=== PATIENT | female | born 1975 | race Caucasian/White ===

== ENCOUNTER 2020-09-05 13:21 | Outpatient (REF) | payer OTHER, SELFPAY | END 2020-09-05 13:22 | disposition home or self-care (01) | LOC: HO.LNP 13:21 | PROVIDERS: Visit Provider Internal Medicine | DX: Z20.828 Contact with and (suspected) exposure to other viral communicable diseases (principal) | CPT/HCPCS: 87635 ==

== ENCOUNTER 2020-09-26 09:04 | Outpatient (REF) | payer OTHER, SELFPAY ==
[2020-09-26 10:25] LABS: Glucose Urine UA NEG (NEG); Leukocyte Esterase Urine NEG (NEG); Nitrite Urine NEG (NEG); Urine Blood 1+ (NEG); Urine Ketones NEG (NEG); Urine Protein NEG (NEG-TRACE)
[2020-09-26 10:26] LABS: Appearance Urine CLEAR; Color Urine YELLOW
[2020-09-26 10:33] LABS: Squamous Epithelial Cell Urine 2+ /LPF; WBC Urine 0 /HPF (0-4)
== END 2020-09-26 09:05 | disposition home or self-care (01) ==
LOC: HO.LAB 09:04
PROVIDERS: PCP Internal Medicine; Visit Provider Internal Medicine
DX: R30.0 Dysuria (principal)
CPT/HCPCS: 81001; 87086

== ENCOUNTER 2020-09-26 12:01 | Outpatient (REF) | payer OTHER, SELFPAY ==
--- NOTE | 2020-09-26 | US_ITS ---
EXAMINATION: ULTRASOUND OF THE KIDNEYS AND BLADDER. CLINICAL INFORMATION: 45-year-old female patient with right flank pain and hematuria. COMPARISON: Last KUB on 03/10/2016. TECHNIQUE: Ultrasound of the kidneys and urinary bladder. FINDINGS: Right kidney: There is no evidence of hydronephrosis or cortical thinning. A 0.8 cm nonobstructing calculus is located in the lower pole. The right kidney measures 10.7 x 4.9 x 5.9 cm. Renal cortical echogenicity is normal. The medullary pyramids show the normal hypoechoic appearance. Left knee: There is no evidence of hydronephrosis, stone formation or cortical thinning. The left kidney measures 12.0 x 4.7 x 4.1 cm. Renal cortical echogenicity is normal. The medullary pyramids show the normal hypoechoic appearance. Bladder: The urinary bladder is well distended and unremarkable. No stones are seen within the bladder lumen. Prevoid bladder volume was 412 mL. Post void bladder volume negligible. Bilateral ureteral jets were observed during this exam. Incidentally noted is a simple 2.5 cm cyst arising from the left ovary. US/US renal BI IMPRESSION: 1. Neither kidney shows evidence of hydronephrosis. 2. Nonobstructing calculus, lower pole of the right kidney. 3. Bladder normal. Bilateral ureteral jets were observed.
--- NOTE | 2020-09-26 | US_ITS ---
EXAMINATION: ULTRASOUND OF THE KIDNEYS AND BLADDER. CLINICAL INFORMATION: 45-year-old female patient with right flank pain and hematuria. COMPARISON: Last KUB on 03/10/2016. TECHNIQUE: Ultrasound of the kidneys and urinary bladder. FINDINGS: Right kidney: There is no evidence of hydronephrosis or cortical thinning. A 0.8 cm nonobstructing calculus is located in the lower pole. The right kidney measures 10.7 x 4.9 x 5.9 cm. Renal cortical echogenicity is normal. The medullary pyramids show the normal hypoechoic appearance. Left knee: There is no evidence of hydronephrosis, stone formation or cortical thinning. The left kidney measures 12.0 x 4.7 x 4.1 cm. Renal cortical echogenicity is normal. The medullary pyramids show the normal hypoechoic appearance. Bladder: The urinary bladder is well distended and unremarkable. No stones are seen within the bladder lumen. Prevoid bladder volume was 412 mL. Post void bladder volume negligible. Bilateral ureteral jets were observed during this exam. Incidentally noted is a simple 2.5 cm cyst arising from the left ovary. US/US bladder IMPRESSION: 1. Neither kidney shows evidence of hydronephrosis. 2. Nonobstructing calculus, lower pole of the right kidney. 3. Bladder normal. Bilateral ureteral jets were observed.
== END 2020-09-26 12:02 | disposition home or self-care (01) ==
LOC: HO.US 12:01
PROVIDERS: Visit Provider Internal Medicine
DX: R10.31 Right lower quadrant pain (principal); R31.9 Hematuria, unspecified
CPT/HCPCS: 76770; 76775; 76857

== ENCOUNTER 2020-09-27 10:53 | Outpatient (REF) | payer OTHER, SELFPAY ==
--- NOTE | 2020-09-27 10:59 | CT_ITS ---
EXAMINATION: CT ABDOMEN AND PELVIS WITHOUT AND WITH CONTRAST CLINICAL INFORMATION: Hematuria. Flank pain. COMPARISON: Renal ultrasound September 26, 2020 and KUB March 10, 2016 TECHNIQUE: Multidetector volumetric imaging was performed of the abdomen and pelvis before and after the IV administration of 85 mL of Omnipaque 350 intravenous contrast. Sagittal and coronal reformatted images were obtained on the technologist's workstation. This CT examination was performed using dose optimization techniques as appropriate, variously including the following: *Automated exposure control *Adjustment of mA and/or kV according to patient size (this includes techniques or standardized protocols for targeted exams where dose is matched to indication/reason for exam; i.e. extremities or head) *Use of iterative reconstruction technique DLP: 1064 mGy-cm FINDINGS: Visualized lung bases are well aerated. The liver is mildly enlarged. Gallstones are present within a relatively decompressed gallbladder. The pancreas, spleen and adrenal glands are unremarkable. Symmetrically sized kidneys which demonstrate symmetric enhancement. No renal calculi are noted bilaterally. There is no hydronephrosis of either kidney. Opacified portions of the proximal and mid bilateral ureters are normal in caliber. The distal bilateral ureters are not well opacified and therefore not accurately evaluated. There is a 3 mm calcification in the right pelvis, however, do not believe it is within the distal right ureter and instead likely represents a phlebolith. I suspect this can be visualized on KUB from March 10, 2016. The stomach is decompressed. Normal caliber loops of small and large bowel. There is mild colonic diverticulosis present. The appendix is difficult to visualize, however, does appear normal in caliber (axial image 43/70, series 8 and coronal image 31/92, series 10). There is however prominent mesenteric stranding which appears to be centered within the right lower quadrant. Interestingly, however, there is some mesenteric stranding also noted within the posterior left lower abdomen and centrally within the pelvis. The bladder is decompressed and therefore not accurately evaluated, however, no gross bladder abnormality is identified. There is a suspected 2 cm left adnexal cyst. A small amount of free pelvic fluid is noted, nonspecific. No inguinal lymphadenopathy appreciated. Mild degenerative changes in of the spine. Left L5 pars defect is noted. CT/CT abdomen pelvis wo/w con IMPRESSION: 1. Abnormal mesenteric stranding is noted within the lower abdomen and pelvis which appears most prominent within the right lower abdominal quadrant. The appendix is difficult to visualize, however, does not appear dilated. This area of stranding abuts the sigmoid colon which demonstrates mild diverticulosis and also abuts the uterus and right adnexal region in particular. Ultimately, a cause for this stranding is unknown. 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 Clinical correlation is recommended in addition to surgical consultation. An ultrasound of the pelvis may be helpful at this time. 2. Cholelithiasis. This Critical Result was discussed with Dr. Staples at 1:06 PM on September 27, 2020 and it was ascertained that the content and urgency of the report was understood at the time of direct communication.
[2020-09-27] MEDS: iohexoL 350 MG/ML 100 ML INFUS..BTL IV (11:45)
[2020-09-27 14:41] LABS: MANUAL DIFF FLAG NO
[2020-09-27 14:49] LABS: Basophils Percent Auto 0.4 % (0-2); Eosinophils Absolute Auto 0.1 X10*3/uL (0.0-0.4); Eosinophils Percent Auto 1.1 % (0-4); Hematocrit 37.5 % (37-47); Hemoglobin 12.4 g/dl (12.0-16.0); Imm Gran Abs Auto 0.04 X10*3/uL (0.00-0.03); Imm Gran Pct Auto 0.4 % (0.0-0.4); Lymphocytes Percent Auto 19.4 % (20-40); Mean Corpuscular HGB Conc 33.1 g/dl (31.0-35.0); Mean Corpuscular Hemoglobin 30.1 pg (27.0-33.0); Mean Platelet Volume 10.2 fL (9.4-12.3); Monocytes Absolute Auto 0.6 X10*3/uL (0.1-1.2); Monocytes Percent Auto 5.9 % (2-11); Neutrophils Absolute Auto 7.3 X10*3/uL (2.0-8.3); Neutrophils Percent Auto 72.8 % (45-73); Platelet Count 348 X10*3/uL (160-400); Red Blood Count 4.12 X10*6/uL (4.20-5.50); Red Cell Distribution Width 12.8 % (11.0-16.0)
[2020-09-27 15:17] LABS: Alanine Aminotransferase 10 U/L (0-31); Albumin Level 3.9 g/dL (3.5-5.0); Alkaline Phosphatase 72 U/L (39-117); Anion Gap 10 (12-20); Aspartate Amino Transferase 11 U/L (5-31); Bilirubin Total 0.5 mg/dL (0.0-1.0); Blood Urea Nitrogen 14 mg/dL (9-16); C Reactive Protein 16.38 mg/dL (< or = 0.50); Calcium 8.5 mg/dL (8.4-10.2); Carbon Dioxide 28 mmol/L (22-29); Chloride 105 mmol/L (96-108); Estimated Glomerular Filt Rate > 60; Glucose Random 81 mg/dL (60-115); Sodium 139 mmol/L (135-145); Total Protein 6.2 g/dL (6.5-8.0)
== END 2020-09-27 10:54 | disposition home or self-care (01) ==
LOC: HO.CT 10:53
PROVIDERS: PCP Internal Medicine; Visit Provider Internal Medicine
DX: R94.8 Abnormal results of function studies of other organs and systems (principal); R31.9 Hematuria, unspecified; R10.30 Lower abdominal pain, unspecified
CPT/HCPCS: 36415; 74178; 80053; 85025; 86140; 99202; Q9967

== ENCOUNTER 2020-09-28 09:49 | Outpatient (REF) | payer OTHER, SELFPAY ==
--- NOTE | 2020-09-28 | US_ITS ---
EXAMINATION: PELVIC ULTRASOUND CLINICAL INFORMATION: Lower abdominal pain COMPARISON: Previous CT from yesterday TECHNIQUE: Transabdominal and transvaginal pelvic ultrasound. Transvaginal exam was performed for better visualization of the uterus and ovaries. FINDINGS: The uterus is anteverted and measures 11.6 x 4.5 x 6.7 cm in dimension. No focal uterine lesion is seen. Endometrial thickness measures 0.7 cm. There is a small amount of fluid in the endometrial cavity. There are nabothian cysts in the cervix. The right ovary measures 3.1 x 2.4 x 1.7 cm and is normal-appearing. The left ovary is upper normal in size measuring 4.2 x 2.3 x 2.4 cm. There is a 2 x 1.1 x 1.8 cm left ovarian cyst. There is a small amount of fluid in the pelvis. US/US transvaginal IMPRESSION: 2 cm simple left ovarian cyst. Small amount of fluid in the pelvis.
--- NOTE | 2020-09-28 09:54 | US_ITS ---
EXAMINATION: PELVIC ULTRASOUND CLINICAL INFORMATION: Lower abdominal pain COMPARISON: Previous CT from yesterday TECHNIQUE: Transabdominal and transvaginal pelvic ultrasound. Transvaginal exam was performed for better visualization of the uterus and ovaries. FINDINGS: The uterus is anteverted and measures 11.6 x 4.5 x 6.7 cm in dimension. No focal uterine lesion is seen. Endometrial thickness measures 0.7 cm. There is a small amount of fluid in the endometrial cavity. There are nabothian cysts in the cervix. The right ovary measures 3.1 x 2.4 x 1.7 cm and is normal-appearing. The left ovary is upper normal in size measuring 4.2 x 2.3 x 2.4 cm. There is a 2 x 1.1 x 1.8 cm left ovarian cyst. There is a small amount of fluid in the pelvis. US/US pelvic complete IMPRESSION: 2 cm simple left ovarian cyst. Small amount of fluid in the pelvis.
== END 2020-09-28 09:50 | disposition home or self-care (01) ==
LOC: HO.US 09:49
PROVIDERS: Visit Provider Surgery
DX: R10.30 Lower abdominal pain, unspecified (principal); E66.3 Overweight
CPT/HCPCS: 76830; 76856

== ENCOUNTER 2020-10-01 09:20 | Outpatient (REF) | payer OTHER, SELFPAY ==
[2020-10-02 10:27] LABS: CA-125 55 U/mL (<35)
== END 2020-10-01 09:21 | disposition home or self-care (01) ==
LOC: HO.LAB 09:20
PROVIDERS: Visit Provider Internal Medicine
DX: R10.2 Pelvic and perineal pain (principal); Z80.41 Family history of malignant neoplasm of ovary
CPT/HCPCS: 86304

== ENCOUNTER 2020-10-05 07:48 | Outpatient (REF) | payer OTHER, SELFPAY | END 2020-10-05 07:49 | disposition home or self-care (01) | LOC: HO.10HDL 07:48 | PROVIDERS: Visit Provider Obstetrics & Gynecology | DX: Z13.89 Encounter for screening for other disorder (principal) ==

== ENCOUNTER 2021-03-11 10:17 | Outpatient (REF) | payer OTHER, SELFPAY ==
[2021-03-11 11:12] LABS: Influenza A PCR NEGATIVE (Negative); Influenza B PCR NEGATIVE (Negative); Resp Syncy Virus RNA Qual PCR NEGATIVE (Negative); SARS COV2 PCR INHOUSE NEGATIVE (Negative)
== END 2021-03-11 10:18 | disposition home or self-care (01) ==
LOC: HO.LNP 10:17
PROVIDERS: Visit Provider Internal Medicine
DX: Z20.822 Contact with and (suspected) exposure to COVID-19 (principal)
CPT/HCPCS: 0241U

== ENCOUNTER 2021-03-27 08:59 | Outpatient (REF) | payer OTHER, SELFPAY ==
[2021-03-27 10:00] LABS: MANUAL DIFF FLAG NO
[2021-03-27 10:05] LABS: Basophils Absolute Auto 0.1 X10*3/uL (0.0-0.2); Basophils Percent Auto 0.5 % (0-2); Eosinophils Absolute Auto 0.1 X10*3/uL (0.0-0.4); Eosinophils Percent Auto 0.8 % (0-4); Hematocrit 37.2 % (37-47); Hemoglobin 12.3 g/dl (12.0-16.0); Imm Gran Abs Auto 0.05 X10*3/uL (0.00-0.03); Imm Gran Pct Auto 0.4 % (0.0-0.4); Lymphocytes Absolute Auto 1.6 X10*3/uL (1.2-4.9); Lymphocytes Percent Auto 11.6 % (20-40); Mean Corpuscular HGB Conc 33.1 g/dl (31.0-35.0); Mean Corpuscular Hemoglobin 30.2 pg (27.0-33.0); Mean Corpuscular Volume 91.4 fL (80-98); Mean Platelet Volume 9.8 fL (9.4-12.3); Monocytes Absolute Auto 0.8 X10*3/uL (0.1-1.2); Monocytes Percent Auto 5.7 % (2-11); Neutrophils Absolute Auto 10.8 X10*3/uL (2.0-8.3); Platelet Count 308 X10*3/uL (160-400); Red Blood Count 4.07 X10*6/uL (4.20-5.50); Red Cell Distribution Width 12.8 % (11.0-16.0); White Blood Count 13.3 X10*3/uL (4.8-10.8)
[2021-03-27 10:13] LABS: Glucose Urine UA NEG (NEG); Leukocyte Esterase Urine NEG (NEG); Nitrite Urine NEG (NEG); PH 6.5 (5.0-8.0); Urine Blood NEG (NEG); Urine Ketones NEG (NEG); Urine Protein NEG (NEG-TRACE)
[2021-03-27 10:14] LABS: Appearance Urine CLEAR; Color Urine YELLOW
[2021-03-27 10:30] LABS: Alanine Aminotransferase 10 U/L (0-31); Albumin Level 3.9 g/dL (3.5-5.0); Alkaline Phosphatase 66 U/L (39-117); Anion Gap 10 (12-20); Aspartate Amino Transferase 11 U/L (5-31); Blood Urea Nitrogen 14 mg/dL (9-16); C Reactive Protein 6.02 mg/dL (< or = 0.50); Carbon Dioxide 28 mmol/L (22-29); Chloride 103 mmol/L (96-108); Estimated Glomerular Filt Rate > 60; Glucose Fasting 98 mg/dL (60-99); Potassium 4.3 mmol/L (3.3-5.1); Sodium 137 mmol/L (135-145); Total Protein 6.1 g/dL (6.5-8.0)
[2021-03-28 06:27] LABS: CA-125 24 U/mL (<35)
== END 2021-03-27 09:00 | disposition home or self-care (01) ==
LOC: HO.10HDL 08:59
PROVIDERS: Visit Provider Internal Medicine
DX: R10.30 Lower abdominal pain, unspecified (principal); R10.2 Pelvic and perineal pain; K80.80 Other cholelithiasis without obstruction; N83.209 Unspecified ovarian cyst, unspecified side
CPT/HCPCS: 36415; 80053; 81003; 85025; 86140; 86304; 87086

== ENCOUNTER 2021-06-12 12:48 | Outpatient (REF) | payer OTHER, SELFPAY ==
--- NOTE | ~2021-06-12 | US_ITS ---
EXAMINATION: US ABDOMEN COMPLETE CLINICAL INFORMATION: Right lower quadrant pain. COMPARISON: CT abdomen and pelvis 09/27/2020. Ultrasound kidneys and bladder 09/26/2020. KUB 03/10/2016 and 08/10/2015. Ultrasound abdomen 12/08/2014. TECHNIQUE: Real-time imaging of the abdominal viscera. FINDINGS: PANCREAS: The pancreas is homogeneous in echotexture without enlargement. No focal lesion seen. ABDOMINAL AORTA: The proximal, mid, and distal segments are normal in caliber. INFERIOR VENA CAVA: Visualized portions are normal. LIVER: Normal. The liver is normal in size. The liver contour is normal. Parenchymal echogenicity is normal. No focal hepatic lesion. There is no intrahepatic biliary duct dilatation seen. GALLBLADDER: The gallbladder wall thickness measures 0.25 cm. The gallbladder is physiologically distended. Multiple mobile gallstones are present. No evidence of gallbladder wall thickening or pericholecystic fluid. COMMON BILE DUCT: Normal in caliber measuring 0.2 cm in diameter. RIGHT KIDNEY: Normal. No hydronephrosis. No renal calculi or focal parenchymal lesions. The kidney measures 10.6 cm in maximum dimension. LEFT KIDNEY: Normal. No hydronephrosis. No renal calculi or focal parenchymal lesions. The kidney measures 10.7 cm in maximum dimension. SPLEEN: The spleen is mildly enlarged. The spleen measures 13.1 cm in maximum dimension. FREE FLUID: None. ADDITIONAL FINDINGS: Appendix was not visualized. There is minimal free fluid in the right adnexa and endometrial canal. The ovaries were not optimally visualized. US/US abdomen complete IMPRESSION: Cholelithiasis with mild gallbladder wall thickening. There is a small amount of free fluid with echogenic septations in the right adnexa and minimal fluid in the endometrial canal. The rest of the abdominal ultrasound is unremarkable.
[2021-06-12 13:12] LABS: MANUAL DIFF FLAG NO
[2021-06-12 13:16] LABS: Basophils Percent Auto 0.3 % (0-2); Eosinophils Absolute Auto 0.1 X10*3/uL (0.0-0.4); Eosinophils Percent Auto 0.8 % (0-4); Hematocrit 36.9 % (37-47); Hemoglobin 12.7 g/dl (12.0-16.0); Imm Gran Abs Auto 0.07 X10*3/uL (0.00-0.03); Imm Gran Pct Auto 0.5 % (0.0-0.4); Lymphocytes Absolute Auto 1.9 X10*3/uL (1.2-4.9); Lymphocytes Percent Auto 13.5 % (20-40); Mean Corpuscular HGB Conc 34.4 g/dl (31.0-35.0); Mean Corpuscular Hemoglobin 31.2 pg (27.0-33.0); Mean Corpuscular Volume 90.7 fL (80-98); Mean Platelet Volume 9.1 fL (9.4-12.3); Monocytes Absolute Auto 0.6 X10*3/uL (0.1-1.2); Monocytes Percent Auto 4.3 % (2-11); Neutrophils Absolute Auto 11.5 X10*3/uL (2.0-8.3); Neutrophils Percent Auto 80.6 % (45-73); Platelet Count 263 X10*3/uL (160-400); Red Blood Count 4.07 X10*6/uL (4.20-5.50); Red Cell Distribution Width 12.8 % (11.0-16.0); White Blood Count 14.3 X10*3/uL (4.8-10.8)
[2021-06-12 14:36] LABS: Glucose Urine UA NEG (NEG); Leukocyte Esterase Urine NEG (NEG); Nitrite Urine NEG (NEG); Urine Blood NEG (NEG); Urine Ketones NEG (NEG); Urine Protein NEG (NEG-TRACE)
[2021-06-12 14:37] LABS: Appearance Urine CLEAR; Color Urine YELLOW
[2021-06-12 15:01] LABS: WBC Urine 0-2 /HPF (0-4)
[2021-06-12 15:02] LABS: Bacteria Urine TRACE /LPF; RBC Urine 0-2 /HPF (0)
== END 2021-06-12 12:49 | disposition home or self-care (01) ==
LOC: HO.US 12:48
PROVIDERS: PCP Internal Medicine; Visit Provider Internal Medicine
DX: R10.31 Right lower quadrant pain (principal)
CPT/HCPCS: 36415; 76700; 81001; 85025; 86140; 87086

== ENCOUNTER 2021-10-30 10:26 | Outpatient (REF) | payer OTHER, SELFPAY ==
[2021-10-30 11:43] LABS: Influenza A PCR NEGATIVE (Negative); Influenza B PCR NEGATIVE (Negative); Resp Syncy Virus RNA Qual PCR NEGATIVE (Negative); SARS COV2 PCR INHOUSE NEGATIVE (Negative)
== END 2021-10-30 10:27 | disposition home or self-care (01) ==
LOC: HO.LNP 10:26
PROVIDERS: PCP Internal Medicine; Visit Provider Internal Medicine
DX: Z20.822 Contact with and (suspected) exposure to COVID-19 (principal)
CPT/HCPCS: 0241U

== ENCOUNTER 2021-12-30 11:33 | Outpatient (REF) | payer OTHER, SELFPAY ==
--- NOTE | ~2021-12-30 | US_ITS ---
EXAMINATION: US PELVIS CLINICAL INFORMATION: Ovarian cyst. Pelvic pain. COMPARISON: Previous pelvic ultrasound most recent September 2020 TECHNIQUE: Ultrasound of the pelvis is performed using both transabdominal and transvaginal transducers along with Doppler. Transvaginal imaging is performed due to inadequate visualization transabdominally. FINDINGS: The uterus is anteverted and measures 10.5 x 5.9 x 7.3 cm. There is fluid seen in the endometrial cavity. There is echogenic debris seen in the endometrial cavity. The endometrium does not appear thickened, anterior and posterior single-thickness measuring 0.2 cm or double-thickness endometrium measuring 0.4 cm. There are nabothian cysts in the cervix. The left ovary measures 2.9 x 1.7 x 1.9 cm. There is left adnexal cyst measuring 1.6 x 1.6 x 2.6 cm. The right ovary measures 2.2 x 2 x 1.4 cm. There is an anechoic cystic tubular structure adjacent to the right ovary in the right adnexa measuring 1.6 x 1.6 x 2.6 cm questionable for hydrosalpinx. Superior to the uterus there is a larger complex tubular structure, partially solid partially cystic. Cystic component measures 4.3 x 2.7 x 2.6 cm and adjacent solid component measures 4.3 x 2.7 x 2.6 cm. No free fluid is seen in the pelvis. US/US pelvic and transvaginal IMPRESSION: Fluid in the endometrial cavity and echogenic debris. Question right hydrosalpinx. Complex partially solid partially cystic lesion superior to the uterus not seen on prior exams. Correlation with quantitative beta hCG to exclude , including ectopic , and imaging followup recommended. 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
[2021-12-30 16:05] LABS: MANUAL DIFF FLAG NO
[2021-12-30 16:44] LABS: Basophils Percent Auto 0.5 % (0-2); Eosinophils Absolute Auto 0.1 X10*3/uL (0.0-0.4); Eosinophils Percent Auto 1.4 % (0-4); Hematocrit 34.5 % (37.0-47.0); Hemoglobin 11.6 g/dl (12.0-16.0); Imm Gran Abs Auto 0.03 X10*3/uL (0.00-0.03); Imm Gran Pct Auto 0.3 % (0.0-0.4); Lymphocytes Absolute Auto 1.7 X10*3/uL (1.2-4.9); Lymphocytes Percent Auto 19.6 % (20-40); Mean Corpuscular HGB Conc 33.6 g/dl (31.0-35.0); Mean Corpuscular Hemoglobin 30.3 pg (27.0-33.0); Mean Corpuscular Volume 90.1 fL (80.0-98.0); Mean Platelet Volume 9.3 fL (9.4-12.3); Monocytes Absolute Auto 0.7 X10*3/uL (0.1-1.2); Monocytes Percent Auto 7.4 % (2-11); Neutrophils Absolute Auto 6.2 x10*3/uL (2.0-8.3); Neutrophils Percent Auto 70.8 % (45-73); Platelet Count 344 X10*3/uL (160-400); Red Blood Count 3.83 X10*6/uL (4.20-5.50); Red Cell Distribution Width 12.1 % (11.0-16.0); White Blood Count 8.8 X10*3/uL (4.8-10.8)
[2021-12-30 17:00] LABS: HCG Quantitative < 2 mIU/mL
== END 2021-12-30 11:34 | disposition home or self-care (01) ==
LOC: HO.US 11:33
PROVIDERS: PCP Internal Medicine; Visit Provider Internal Medicine
DX: R10.2 Pelvic and perineal pain (principal); N83.209 Unspecified ovarian cyst, unspecified side
CPT/HCPCS: 36415; 76830; 76856; 84702; 85025

== ENCOUNTER 2022-01-02 13:48 | Outpatient (REF) | payer OTHER, SELFPAY ==
--- NOTE | ~2022-01-02 | MR_ITS ---
EXAMINATION: MR PELVIS WITHOUT AND WITH CONTRAST CLINICAL INFORMATION: Severe abdominal pain COMPARISON: Previous pelvic ultrasound most recent 12/30/[address] of the abdomen and pelvis September 2020 TECHNIQUE: Sagittal axial and coronal sequences through the pelvis with and without contrast. The patient received 7.5 mL intravenous Gadavist contrast. FINDINGS: The uterus is normal in size and shape and measures 10 x 5 x 6 cm in sagittal AP and transverse dimension. No focal uterine lesion is seen. The endometrium does not appear thickened. The endometrium does not appear thickened. There is a small amount of fluid in the endometrial cavity. Anterior and posterior single thin thickness endometrium both measure approximately 3 mm for double thickness endometrial thickness measuring 6 mm. The junctional zone does not appear thickened. There are nabothian cysts in the cervix. Both ovaries appear normal. What appears to be separate from both ovaries is a 3 cm cystic structure superior to the right side of the uterine fundus. This is high signal on T1 weighted sequences, high signal on T2-weighted sequences, has a slightly thickened wall and does not demonstrate evidence of enhancement. There is a larger complex cystic multiloculated structure more superior laterally in the right lower quadrant that measures approximately 5 x 6 cm. This is slightly heterogeneous but predominantly low signal on T1 weighted sequences, high signal on T2-weighted sequences and demonstrates peripheral wall enhancement. Appearance is most concerning for a right lower quadrant abscess, possibly a right originating from the appendix or the bowel. The smaller cystic area is intrinsically bright on T1-weighted sequences and possible endometriosis should also be considered. Inflammatory changes appear increased from CT of the abdomen and pelvis September 2020. Follow-up CT of the abdomen and pelvis is recommended. There may be a small amount of loculated ascites seen anterior to the uterus. The bladder is not optimally distended but appears unremarkable. No adenopathy is seen. No hernia is seen. Vascular structures are normal. Bony structures are normal. MR/MR pelvis wo/w con IMPRESSION: Normal-appearing uterus and ovaries. 5 x 6 cm multiloculated cystic structure in the right lower quadrant worrisome for abscess, possibly arising from the bowel or the appendix. Smaller 3 cm complex cystic structure superior and to the right of the uterine fundus and small amount of loculated fluid in the pelvis anterior to the uterus. Follow-up CT scan of the abdomen and pelvis with oral and IV contrast recommended. 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
== END 2022-01-02 13:49 | disposition home or self-care (01) ==
LOC: HO.MRI 13:48
PROVIDERS: PCP Internal Medicine; Visit Provider Internal Medicine
DX: R93.41 Abnormal radiologic findings on diagnostic imaging of renal pelvis, ureter, or bladder (principal)
CPT/HCPCS: 72197; A9585

== ENCOUNTER 2022-01-15 08:18 | Outpatient (REF) | payer OTHER, SELFPAY ==
--- NOTE | ~2022-01-15 | CT_ITS ---
EXAMINATION: CT ABDOMEN AND PELVIS WITH CONTRAST CLINICAL INFORMATION: Right lower quadrant mass and lump with pain COMPARISON: Pelvic studies of January 02, [address] abdomen of September 27, 2020 TECHNIQUE: Multidetector volumetric images were obtained from the superior aspect of the liver through the pubic symphysis following administration 85 mL of Omnipaque 350 intravenous contrast. Sagittal and coronal reformatted images were obtained on the technologist's workstation. Oral contrast: No This CT examination was performed using dose optimization techniques as appropriate, variously including the following: *Automated exposure control *Adjustment of mA and/or kV according to patient size (this includes techniques or standardized protocols for targeted exams where dose is matched to indication/reason for exam; i.e. extremities or head) *Use of iterative reconstruction technique DLP: 601 mGy-cm FINDINGS: LUNG BASES: The visualized lung bases are unremarkable. No pleural or pericardial effusion. LIVER, GALLBLADDER, AND BILIARY TREE: There is mild hepatomegaly with vertical span of 20 cm. No focal hepatic mass or intrahepatic bile duct dilatation is identified. There are multiple gallstones seen within the gallbladder. No inflammatory change within the pericholecystic tissues are seen and no fluid within the wall is identified. PANCREAS: Unremarkable. SPLEEN: There is mild splenomegaly present with vertical span of 13 cm. ADRENAL GLANDS: Unremarkable. KIDNEYS AND URETERS: The kidneys are normal in size, shape, and attenuation. No hydronephrosis, or calculi seen. No perinephric stranding. There is some distention of the distal half of the right ureter down to soft tissue density within the pelvis. There is a right pelvic calcification present which is similar to prior study of September 27, 2020 and likely represents a small phlebolith adjacent to the distal right ureter. BLADDER: Unremarkable. GASTROINTESTINAL TRACT: No dilated loops of large or small bowel are evident. No free air or free fluid. There is again noted to be large amount of mesenteric fat stranding within the right lower quadrant which is also encompassing the appendix which does not appear to be enlarged and appears to be similar to previous study. There is some bowel wall thickening seen involving the distal cecum and distal ileum. No significant free fluid is identified. There appears to be a right adnexal low-density region which could represent a few adnexal cysts. Tubo-ovarian abscess cannot be excluded. Appearance is similar to prior examination of September 27, 2020 ABDOMINAL WALL: No significant hernia is appreciated. LYMPH NODES: There are some prominent right iliac chain lymph nodes but none of which are pathologically enlarged. VASCULAR: Unremarkable. PELVIC VISCERA: As described above there is large amount of right lower quadrant fat stranding involving the region of the appendix, distal cecum, and distal ileum as well as the region of the right adnexal structures. OSSEOUS STRUCTURES: No acute destructive bony lesions identified. There is a left-sided L5 pars defect present. No suspicious destructive bony lesions identified. CT/CT abdomen pelvis w con IMPRESSION: Similar appearance to the right lower quadrant with mesenteric stranding surrounding the appendix and distal cecum as well as portions of the ileum and with extension to region of the right adnexa. The appendix is not dilated. Possible tubo-ovarian abscess is not excluded. Clinical correlation with any history of inflammatory bowel disease suggested. No new abscess collection is identified and no significant free fluid is seen. Cholelithiasis. Mild hepatosplenomegaly. Fleischner guidelines were followed.
[2022-01-15] MEDS: iohexoL 350 MG/ML 100 ML INFUS..BTL IV (09:12)
== END 2022-01-15 08:19 | disposition home or self-care (01) ==
LOC: HO.CT 08:18
PROVIDERS: Visit Provider Internal Medicine
DX: R10.31 Right lower quadrant pain (principal); R19.00 Intra-abdominal and pelvic swelling, mass and lump, unspecified site
CPT/HCPCS: 74177; Q9967

== ENCOUNTER → 2022-01-16 08:24 | Outpatient (BNVA) | payer OTHER, SELFPAY | PROVIDERS: PCP Internal Medicine; Referring Provider Internal Medicine; Visit Provider Surgery | DX: R10.30 Lower abdominal pain, unspecified (principal) | CPT/HCPCS: 99212 ==

== ENCOUNTER 2022-02-14 10:59 | Outpatient (REF) | payer OTHER, SELFPAY ==
[2022-02-17 16:25] LABS: CA 125 New Method 41 U/mL (<35); CA-125 57 U/mL (<35)
== END 2022-02-14 11:00 | disposition home or self-care (01) ==
LOC: HO.LAB 10:59
PROVIDERS: PCP Internal Medicine; Visit Provider Obstetrics & Gynecology
DX: N83.209 Unspecified ovarian cyst, unspecified side (principal)
CPT/HCPCS: 36415; 82378; 86304

== ENCOUNTER 2022-02-18 08:28 | Outpatient (REF) | payer OTHER, SELFPAY ==
[2022-02-18 15:16] LABS: CDiff Gene PCR NEGATIVE (Negative)
== END 2022-02-18 08:29 | disposition home or self-care (01) ==
LOC: HO.LAB 08:28
PROVIDERS: PCP Internal Medicine; Visit Provider Internal Medicine
DX: R19.7 Diarrhea, unspecified (principal)
CPT/HCPCS: 36415; 87045; 87046; 87077; 87493

== ENCOUNTER 2022-04-04 07:51 | Day surgery (SDC) | payer OTHER, SELFPAY ==
[2022-03-31 12:10] VITALS: BMI 41.5
--- NOTE | 2022-04-02 12:56 | HO.ANESPROP2 ---
Documented by User: Susie Ramirez NP 04/02/22 12:57 HPI - Anesthesia Eval Consult details Narrative: 46yo F for Colonoscopy PMFSH Active Problems Active Problems: All Active Problems (Updated 09/27/20 @ 14:58 by Mark Vasquez MD) Lower abdominal pain (Acute) Past Medical History Medical History Ectopic Kidney stone Lower abdominal pain Overweight Family History Family History Sister History of breast cancer History of ovarian cancer Surgical History Surgical History (Updated 04/04/22 @ 08:49 by Blessing Dumont MD) History of section History of extraction of renal calculus History of nasal surgery History of salpingectomy History of surgery of uterus History of tubal ligation Social History Social History Alcohol intake: never Patient Tobacco Use Status: Current someday Tobacco user Use of substances other than those prescribed or required for medical reasons: No Are you DNR?: No Advance Directives: No Advance Directives Information Provided: Yes Recently lost weight without trying: No Nutrition Risks: No Nutritional Risk Meds Allergies Allergy/AdvReac Type Severity Reaction Status Date / Time No Known Allergies Allergy Verified 01/16/22 08:30 Home Medications Medication Instructions Recorded Confirmed Last Taken Type oxycodone 5 mg tablet mg PO 09/27/20 01/16/22 Unknown History ferrous sulfate 325 mg (65 mg 325 mg PO DAILY 01/16/22 01/16/22 Unknown History iron) tablet Exam Exam Date and Time: April 02, 2022 1256 Height,Weight and Vital Signs: Height 4 ft 11 in Weight 93.44 kg Assessment and Plan Assessment Anesthesia Assessment: Chart Reviewed Documented by User: Blessing Dumont MD 04/04/22 08:51 PMFSH Active Problems Active Problems: All Active Problems (Updated 09/27/20 @ 14:58 by Mark Vasquez MD) Lower abdominal pain (Acute) Increased BMI 40.4 Denies SMILEY Past Medical History Medical History Ectopic Kidney stone Lower abdominal pain Overweight Family History Family History Sister History of breast cancer History of ovarian cancer Family history of problems with anesthesia: No Surgical History Surgical History (Updated 04/04/22 @ 08:49 by Blessing Dumont MD) History of section History of extraction of renal calculus History of nasal surgery History of salpingectomy History of surgery of uterus History of tubal ligation History of Problems with Anesthesia: No Social History Social History Alcohol intake: never Patient Tobacco Use Status: Current someday Tobacco user Use of substances other than those prescribed or required for medical reasons: No Are you DNR?: No Advance Directives: No Advance Directives Information Provided: Yes Recently lost weight without trying: No Nutrition Risks: No Nutritional Risk Meds Allergies Allergy/AdvReac Type Severity Reaction Status Date / Time No Known Allergies Allergy Verified 01/16/22 08:30 Home Medications Medication Instructions Recorded Confirmed Last Taken Type oxycodone 5 mg tablet mg PO 09/27/20 01/16/22 Unknown History ferrous sulfate 325 mg (65 mg 325 mg PO DAILY 01/16/22 01/16/22 Unknown History iron) tablet Exam Height,Weight and Vital Signs: Height 4 ft 11 in Weight 93.44 kg Vital Signs Temp Pulse Resp BP Pulse Ox 04/04/22 08:10 97.8 F 84 16 98/64 98 Airway Mallampati Class: II TM Dist: >3cm Neck ROM: Full Loose/Missing/Broken Teeth: Yes (Loose tooth bottom front ) Heart: RRR Lungs: CTAB Assessment and Plan Assessment Anesthesia Assessment: Anesthesia Plan Discussed Final Anesthetic Review Family History of Problems with Anesthesia: No History of Problems with Anesthesia: No NPO: Yes ASA Class: III Final Preanesthetic Review: No Changes in Pt Med Stat, Meds/Allgs Chart Reviewed, Consent Obtained/Reviewed and Anes Risks/Benef Reviewed Patient Risk: Intermediate Procedure Risk: Low Assessment/Block/Sedation in SS: Assess/Block/Sedation-SS Anesthetic Plan Anesthetic Plan: MAC: Disposition: Standard PACU
[2022-04-04 08:03] VITALS: BMI 40.4
[2022-04-04 08:10] VITALS: BP 98/64; PULSE 84; RESP 16; TEMP 36.6; O2SAT 98
[2022-04-04] MEDS: Lactated Ringers 1,000 ML 100 ML IVCONT (08:25)
[2022-04-04 09:58] VITALS: BP 119/49; PULSE 98; RESP 18; TEMP 36.3; O2SAT 96
--- NOTE | 2022-04-04 10:01 | P.BOP_ITS ---
Brief Operative Note Date of Service: 04/04/22 Pre-op diagnosis: Screening, Abnormal CT of GI tract Post-op diagnosis: other (Mild diverticulosis, Int/Ext Hemorrhoids) Procedure: Colonoscopy to the cecum and TI with biopsies Surgeon: Theodore Puente Anesthesia: MAC Was an Supervisor Cigar Making Hand used for this Procedure?: No Estimated blood loss (mL): 2.0 Pathology: other (A. Terminal ileum B. Ascending colon C. Descending colon) Condition: stable Disposition: PACU
[2022-04-04 10:13] VITALS: BP 131/80; PULSE 72; RESP 16; TEMP 36.3; O2SAT 98
--- NOTE | 2022-04-04 12:03 | OP_ITS ---
SURGEON: Theodore Puente MD INDICATIONS: The patient presents for evaluation of colorectal cancer screening and abnormal CT scan of the small bowel. Full consent was obtained from her for this, including risks of bleeding and perforation. PREOPERATIVE DIAGNOSIS: POSTOPERATIVE DIAGNOSIS: PROCEDURE PERFORMED: Colonoscopy to the cecum and terminal ileum with biopsies. ESTIMATED BLOOD LOSS: COMPLICATIONS: ANESTHESIA: Monitored anesthesia care. ASSISTANTS: SPECIMENS: PREOPERATIVE DIAGNOSES: Colorectal cancer screening and abnormal CT scan of small bowel and colon. POSTOPERATIVE DIAGNOSES: Colorectal cancer screening and abnormal CT scan of small bowel and colon, mild diverticulosis, internal and external hemorrhoids, normal terminal ileum and colon. DESCRIPTION OF PROCEDURE: The patient was placed in the left lateral decubitus position. The digital rectal exam revealed external hemorrhoidal tissue. The Olympus video pediatric colonoscope was entered into the rectum and advanced easily to the cecum. Once in the cecum, I did identify normal-appearing cecal pouch with appendiceal orifice and a normal-appearing ileocecal valve. The terminal ileum was cannulated and appeared normal. There was no sign of any Crohn's disease. Biopsies were obtained. The terminal ileum was inspected for least 5-10 cm. The scope was withdrawn back into the colon. The entire cecum and ileocecal valve appeared normal. The scope was then slowly withdrawn assessing all mucosal surfaces carefully. Preparation was excellent. I did not visualize any sign of colitis, polyps, nor angiodysplasia. There were occasional diverticula in the sigmoid colon. Random biopsies were obtained in the ascending and descending colon. In the rectum, the scope was retroflexed visualizing internal hemorrhoids, but no other pathology. The rectal mucosa appeared normal. The scope was straightened and withdrawn from the patient. She tolerated the procedure well and was returned to the recovery area in stable condition. IMPRESSION: 1. Mild sigmoid diverticulosis. 2. Internal and external hemorrhoids. 3. Rule out microscopic colitis. 4. Normal mucosa of colon and TI, without any sign of Crohn's disease. PLAN: The results of the biopsies will be checked. Based on the colonoscopy, I did not visualize any sign of inflammatory bowel disease. Therefore, I suspect the findings on her previous imaging were not related to any Crohn's disease nor other primary GI pathology. Given the negative colonoscopy otherwise, I would recommend a repeat colonoscopy in 10 years. She was advised not to use any aspirin and NSAIDs for 1 week. If her clincal course remains unclear and the suspicion for Crohn's disease remains, then she might need a small bowel video capsule study. This has been discussed with the patient. MD MAIN Best/PATTI / [id number] MTDD
== END 2022-04-04 12:08 | disposition home or self-care (01) ==
PROVIDERS: PCP Internal Medicine; Visit Provider Internal Medicine
PROC: 0DJD8ZZ Inspection of Lower Intestinal Tract, Via Natural or Artificial Opening Endoscopic (ICD-10-PCS; CPT 45378; principal; 2022-04-04 09:00)
DX: Z12.11 Encounter for screening for malignant neoplasm of colon (principal); R93.3 Abnormal findings on diagnostic imaging of other parts of digestive tract; K57.30 Diverticulosis of large intestine without perforation or abscess without bleeding; K64.8 Other hemorrhoids; K64.4 Residual hemorrhoidal skin tags; R19.7 Diarrhea, unspecified; K80.80 Other cholelithiasis without obstruction; D64.9 Anemia, unspecified; Z87.442 Personal history of urinary calculi; Z98.890 Other specified postprocedural states
CPT/HCPCS: 45380; 88305

== ENCOUNTER 2022-05-06 15:57 | Outpatient (REF) | payer OTHER, SELFPAY ==
--- NOTE | ~2022-05-06 | US_ITS ---
EXAMINATION: US RETROPERITONEAL LIMITED (RENAL ONLY) CLINICAL INFORMATION: Renal stone. COMPARISON: CT abdomen and pelvis with contrast 01/15/2022. Ultrasound abdomen complete 06/12/2021 US retroperitoneal complete (renal) 09/26/2020. XR abdomen KUB 03/10/2016 and 08/10/2015. TECHNIQUE: Real-time imaging of the kidneys. FINDINGS: RIGHT KIDNEY: 10.4 x 4.7 x 5.6 cm (SAG x AP x TRV). The kidney is normal in size, contour, and echogenicity. Renal cortical thickness is normal. No calculi or focal parenchymal lesions. No hydronephrosis. LEFT KIDNEY: 12.7 x 4.7 x 5.8 cm (SAG x AP x TRV). The kidney is normal in size, contour, and echogenicity. Renal cortical thickness is normal. No calculi or focal parenchymal lesions. No hydronephrosis. US/US renal BI IMPRESSION: Normal renal ultrasound.
== END 2022-05-06 15:58 | disposition home or self-care (01) ==
LOC: HO.US 15:57
PROVIDERS: Visit Provider Internal Medicine
DX: N20.2 Calculus of kidney with calculus of ureter (principal)
CPT/HCPCS: 76775

== ENCOUNTER 2022-07-03 11:25 | Outpatient (REF) | payer OTHER, SELFPAY ==
[2022-07-03 13:34] LABS: Appearance Urine Turbid; Color Urine Yellow; Glucose Urine UA Negative (Negative); Leukocyte Esterase Urine Negative (Negative); Nitrite Urine Negative (Negative); PH 5.5 (5.0-8.0); Specific Gravity - Urine >= 1.030 (1.005-1.025); Urine Blood Negative (Negative); Urine Ketones Negative (Negative); Urine Protein Trace mg/dL (Neg-Trace)
== END 2022-07-03 11:26 | disposition home or self-care (01) ==
LOC: HO.10HDL 11:25
PROVIDERS: Visit Provider Internal Medicine
DX: R30.0 Dysuria (principal)
CPT/HCPCS: 81003; 87086

== ENCOUNTER 2022-08-22 09:39 | Outpatient (REF) | payer OTHER, SELFPAY ==
[2022-08-22 11:37] LABS: Influenza A PCR NEGATIVE (Negative); Influenza B PCR NEGATIVE (Negative); Resp Syncy Virus RNA Qual PCR NEGATIVE (Negative); SARS COV2 PCR INHOUSE NEGATIVE (Negative)
== END 2022-08-22 09:40 | disposition home or self-care (01) ==
LOC: HO.LNP 09:39
PROVIDERS: Visit Provider Internal Medicine
DX: Z20.822 Contact with and (suspected) exposure to COVID-19 (principal)
CPT/HCPCS: 0241U

== ENCOUNTER 2022-09-03 08:52 | Outpatient (REF) | payer OTHER, SELFPAY ==
[2022-09-03 10:36] LABS: MANUAL DIFF FLAG NO
[2022-09-03 11:04] LABS: Basophils Absolute Auto 0.1 X10*3/uL (0.0-0.2); Basophils Percent Auto 0.4 % (0-2); Eosinophils Absolute Auto 0.1 X10*3/uL (0.0-0.4); Hematocrit 43.5 % (37.0-47.0); Hemoglobin 14.7 g/dl (12.0-16.0); Imm Gran Abs Auto 0.06 X10*3/uL (0.00-0.03); Imm Gran Pct Auto 0.4 % (0.0-0.4); Lymphocytes Percent Auto 14.4 % (20-40); Mean Corpuscular HGB Conc 33.8 g/dl (31.0-35.0); Mean Corpuscular Hemoglobin 29.9 pg (27.0-33.0); Mean Corpuscular Volume 88.4 fL (80.0-98.0); Mean Platelet Volume 9.7 fL (9.4-12.3); Monocytes Absolute Auto 0.6 X10*3/uL (0.1-1.2); Monocytes Percent Auto 4.4 % (2-11); Neutrophils Absolute Auto 11.1 x10*3/uL (2.0-8.3); Neutrophils Percent Auto 79.4 % (45-73); Platelet Count 408 X10*3/uL (160-400); Red Blood Count 4.92 X10*6/uL (4.20-5.50); Red Cell Distribution Width 12.2 % (11.0-16.0)
[2022-09-03 11:20] LABS: Alanine Aminotransferase < 6 U/L (0-31); Albumin Level 4.5 g/dL (3.5-5.0); Alkaline Phosphatase 78 U/L (39-117); Anion Gap 15 (12-20); Aspartate Amino Transferase 11 U/L (5-31); Bilirubin Total 0.5 mg/dL (0.0-1.0); Blood Urea Nitrogen 18 mg/dL (9-16); C Reactive Protein 0.45 mg/dL (< or = 0.50); Calcium 9.6 mg/dL (8.4-10.2); Carbon Dioxide 25 mmol/L (22-29); Chloride 103 mmol/L (96-108); Estimated Glomerular Filt Rate > 60; Glucose Fasting 108 mg/dL (60-99); Lipase 6 U/L (8-78); Potassium 4.4 mmol/L (3.3-5.1); Sodium 139 mmol/L (135-145); Total Protein 7.2 g/dL (6.5-8.0)
== END 2022-09-03 08:53 | disposition home or self-care (01) ==
LOC: HO.10HDL 08:52
PROVIDERS: Visit Provider Internal Medicine
DX: R10.9 Unspecified abdominal pain (principal); R11.2 Nausea with vomiting, unspecified
CPT/HCPCS: 36415; 76700; 80053; 83690; 85025; 86140

== ENCOUNTER 2022-09-03 09:13 | Outpatient (REF) | payer OTHER, SELFPAY ==
--- NOTE | ~2022-09-03 | US_ITS ---
EXAMINATION: US ABDOMEN COMPLETE CLINICAL INFORMATION: Right upper quadrant abdominal pain. COMPARISON: Renal ultrasound dated 05/06/2022, CT scan of the abdomen and pelvis dated 01/15/2022. TECHNIQUE: Real-time imaging of the abdominal viscera. FINDINGS: PANCREAS: Visualized portions unremarkable. ABDOMINAL AORTA: Visualized portions unremarkable. INFERIOR VENA CAVA: Visualized portions unremarkable. LIVER: Unremarkable. GALLBLADDER: Incompletely distended containing gallstones without significant mural thickening or pericholecystic fluid. One of the larger gallstone measures 2.4 cm. Color Doppler showed no abnormal vascular flow. COMMON BILE DUCT: Normal in caliber measuring 0.3 cm in diameter. RIGHT KIDNEY: 10.3 cm. Unremarkable. LEFT KIDNEY: 10.6 cm. Unremarkable. SPLEEN: 11.5 cm. Unremarkable. FREE FLUID: None. US/US abdomen complete IMPRESSION: Cholelithiasis without evidence for acute cholecystitis.
== END 2022-09-03 09:14 | disposition home or self-care (01) ==
LOC: HO.US 09:13
PROVIDERS: PCP Internal Medicine; Visit Provider Internal Medicine
DX: Z13.89 Encounter for screening for other disorder (principal)
CPT/HCPCS: 76700

== ENCOUNTER 2022-09-08 12:15 | Outpatient (REF) | payer OTHER, SELFPAY ==
--- NOTE | ~2022-09-08 | CT_ITS ---
EXAMINATION: CT ABDOMEN AND PELVIS WITHOUT CONTRAST CLINICAL INFORMATION: Abdominal pain, mesenteric adenitis. COMPARISON: Abdominal ultrasound 08/24/2022. CT abdomen/pelvis 01/15/2022. TECHNIQUE: Multidetector volumetric imaging was performed from the superior aspect of the liver through the pubic symphysis. Sagittal and coronal reformatted images were obtained on the technologist's workstation. This CT examination was performed using dose optimization techniques as appropriate, variously including the following: *Automated exposure control *Adjustment of mA and/or kV according to patient size (this includes techniques or standardized protocols for targeted exams where dose is matched to indication/reason for exam; i.e. extremities or head) *Use of iterative reconstruction technique DLP: 709 mGy-cm FINDINGS: LUNG BASES: No focal consolidation or pleural effusion. LIVER, GALLBLADDER, AND BILIARY TREE: Limited noncontrast examination of the liver without discrete focal lesions. The liver measures 20 cm craniocaudally, similar to prior. Large peripherally calcified gallbladder stones are noted measuring up to 2.5 cm. No significant associated pericholecystic fat stranding nor free fluid to suspected acute cholecystitis. PANCREAS: Limited noncontrast examination, unremarkable. SPLEEN: Limited noncontrast examination with no discrete focal lesions. The spleen measures 12.4 cm craniocaudally, unchanged. ADRENAL GLANDS: No adrenal mass. KIDNEYS AND URETERS: Limited noncontrast examination. No nephrolithiasis, hydronephrosis nor perinephric fat stranding. BLADDER: Decompressed and suboptimally assessed. GASTROINTESTINAL TRACT: There is severe wall thickening with mild mesenteric congestion involving the mid and distal ileum, including terminal ileum. There is also wall thickening of the cecum and appendiceal base, and the appendix is dilated measuring up to 0.9 cm in diameter. No appendicolith is noted. Oral contrast opacifies the entirety of the small bowel reaching the colon, including rectum without evidence to suspect bowel obstruction. No free air or drainable extraluminal collections. No pneumatosis. There is colonic diverticulosis with some questionable mild pericolic fat stranding in the sigmoid (3:62). ABDOMINAL WALL: No significant hernia is appreciated. LYMPH NODES: Enlarged right hemiabdominal mesenteric lymph nodes, measuring up to 1 cm in short axis (3:42). Also prominent retroperitoneal and pelvic lymph nodes, for instance measuring 0.9 cm in short axis on the right side on image 63, series 3. VASCULAR: Limited noncontrast examination. The abdominal aorta is of normal diameter. PELVIC VISCERA: There is a low density lesion in the right ovary measuring up to 3.4 cm (3:65) previously 2.4 cm and 01/15/2022. Small volume of free fluid. OSSEOUS STRUCTURES: No acute or aggressive appearing osseous lesions. CT/CT abdomen pelvis wo IV con IMPRESSION: Severe wall thickening of the mid and distal ileum, including terminal ileum with also wall thickening of the cecum and dilatation of the appendix. Findings are most suggestive of acute enteritis with reactive inflammatory changes in the cecum and appendix, correlate clinically. Etiology is uncertain and could be infectious, inflammatory or ischemic. Consultation with a gastrointestinal specialist is recommended and if clinically deemed appropriate evaluation with colonoscopy and/or MR enterography could be obtained, as inflammatory bowel diseases such as Crohn's disease are included in the differential. There is mild pericolic fat stranding around several diverticuli in the sigmoid, raising the possibility of concomitant acute diverticulitis, although this could also be reactive changes. Cholelithiasis but no evidence of acute cholecystitis. Indeterminate low-density lesion in the right ovary, increased in size since 01/15/2022. Recommend further evaluation with a nonemergent pelvic ultrasound. Hepatomegaly and borderline splenomegaly, similar to prior.
== END 2022-09-08 12:16 | disposition home or self-care (01) ==
LOC: HO.CT 12:15
PROVIDERS: PCP Internal Medicine; Visit Provider Internal Medicine
DX: R10.13 Epigastric pain (principal); I88.0 Nonspecific mesenteric lymphadenitis
CPT/HCPCS: 74176

== ENCOUNTER 2022-09-09 14:15 | Outpatient (REF) | payer OTHER, SELFPAY ==
--- NOTE | ~2022-09-09 | US_ITS ---
EXAMINATION: US PELVIS CLINICAL INFORMATION: Right ovarian cyst. Vaginal bleeding. COMPARISON: CT dated 09/08/2022 TECHNIQUE: Ultrasound of the pelvis is performed using both transabdominal and transvaginal transducers along with Doppler. Transvaginal imaging is performed due to inadequate visualization transabdominally. FINDINGS: Uterus: The uterus is anteverted and measures 8.9 x 5.6 x 7.6 cm. There is a nonspecific 1.7 x 1.5 x 1.0 cm structure along the right fundus, which may represent small bowel, though is nonspecific. No definite CT correlate. The double wall endometrial thickness is 7 mm. There is a small amount of fluid within the endometrial canal. The uterus is smooth in contour and has normal myometrial echogenicity. No visible fibroid. Adnexa: Both ovaries are visualized. There is normal color flow to the adnexa. There is no ovarian torsion. There is no pelvic ascites or fluid collection. Right ovary measures 3.7 x 2.8 x 2.9 cm. There is a 3.0 cm follicle in the right ovary with adjacent trace free fluid. Left ovary measures 2.9 x 1.9 x 2.4 cm. There is a 1.7 cm follicle in the left ovary. US/US pelvic and transvaginal IMPRESSION: * Mild endometrial thickening and small fluid within the endometrial canal. If the patient is not postmenopausal, then this is not concerning, and presumably physiologic. If the patient is postmenopausal, tissue sampling would be indicated. * No suspicious ovarian cyst or mass.
== END 2022-09-09 14:16 | disposition home or self-care (01) ==
LOC: HO.US 14:15
PROVIDERS: PCP Internal Medicine; Visit Provider Internal Medicine
DX: N93.8 Other specified abnormal uterine and vaginal bleeding (principal); N83.01 Follicular cyst of right ovary
CPT/HCPCS: 76830; 76856

== ENCOUNTER 2022-10-20 16:59 | Outpatient (REF) | payer OTHER, SELFPAY ==
[2022-10-20 18:03] LABS: Influenza A PCR NEGATIVE (Negative); Influenza B PCR NEGATIVE (Negative); Resp Syncy Virus RNA Qual PCR NEGATIVE (Negative); SARS COV2 PCR INHOUSE NEGATIVE (Negative)
== END 2022-10-20 17:00 | disposition home or self-care (01) ==
LOC: HO.LNP 16:59
PROVIDERS: Visit Provider Internal Medicine
DX: R09.89 Other specified symptoms and signs involving the circulatory and respiratory systems (principal); Z20.822 Contact with and (suspected) exposure to COVID-19
CPT/HCPCS: 0241U

== ENCOUNTER 2022-11-19 09:03 | Outpatient (REF) | payer OTHER, SELFPAY ==
--- NOTE | ~2022-11-19 | MR_ITS ---
EXAMINATION: MRI ABDOMEN AND PELVIS WITH AND WITHOUT CONTRAST: MR ENTEROGRAPHY CLINICAL INFORMATION: Abnormal CT, small bowel, colon, gastrointestinal tract COMPARISON: CT 09/08/2022 and earlier TECHNIQUE: 1500 mL enteral contrast prior to scanning. Then, multiple routine MRI sequences through the abdomen and pelvis were obtained on a high-field 1.5 Ary MRI before and after the uneventful administration of 10 mL of Gadavist gadolinium-based IV contrast. FINDINGS: STOMACH: The stomach is well-distended with contrast. No abnormal wall thickening or hyperenhancement seen. SMALL BOWEL: The small bowel is adequately distended. Normal mucosal fold pattern and enhancement seen. No abnormal bowel wall thickening. Specifically, the abnormal wall thickening of the mid to distal ileum including the terminal ileum and cecum noted on the prior CT examination appear resolved. COLON: No abnormal colonic wall thickening or hyperenhancement seen. The previously noted cecal wall thickening has resolved. The appendix is well-seen, for example coronal series 18 image 50/104 and is normal in appearance. No perianal fluid or inflammatory changes seen. LUNG BASES: Lung bases are clear. LIVER: Liver enhances normally. No focal lesion seen. Hepatic and portal veins enhance normally. GALL BLADDER AND BILIARY TREE: There are gallstones within an otherwise normal gallbladder. No biliary ductal dilatation. SPLEEN: Normal. Normal size. No focal lesion. PANCREAS: Normal. ADRENAL GLANDS: Normal. No adrenal mass. KIDNEYS AND URETERS: Normal symmetric renal enhancement. No hydronephrosis or mass. LYMPHOVASCULAR STRUCTURES: Normal caliber aorta. IVC patent. No pathologically enlarged abdominal or retroperitoneal lymphadenopathy by CT size criteria PELVIS: 3.4 cm unilocular cyst in the left ovary, likely a normal physiologic cyst in a reproductive age female patient; no imaging follow-up recommended. Normal appearance of the right ovary. There appears to be scarring of the lower uterine segment which can be seen from prior section. There is T1 bright proteinaceous or hemorrhagic fluid distending the endometrial canal in the fundus up to 3 cm in sagittal diameter. OSSEOUS STRUCTURES: No acute or suspicious osseous abnormalities. MR/MR abdomen wo/w con IMPRESSION: Previously seen abnormal wall thickening of the distal small bowel and cecum has resolved, presumably a resolved infectious or inflammatory process. No residual bowel wall thickening seen. Proteinaceous or hemorrhagic fluid distends the endometrial canal in the fundus of the uterus up to 3 cm in diameter. Although its possible this is physiologic, the volume of blood products is unusual, and could be seen from uterine synechia or cervical stenosis. Consider correlation with the timing of the patient's menstrual cycle and a follow-up ultrasound may be helpful to confirm resolution.
== END 2022-11-19 09:04 | disposition home or self-care (01) ==
LOC: HO.MRI 09:03
PROVIDERS: Visit Provider Internal Medicine
DX: R93.3 Abnormal findings on diagnostic imaging of other parts of digestive tract (principal)
CPT/HCPCS: 72197; 74183; A9585

== ENCOUNTER 2022-12-03 07:37 | Outpatient (REF) | payer OTHER, SELFPAY ==
[2022-12-03 11:13] LABS: Appearance Urine Clear; Color Urine Yellow; Glucose Urine UA Negative (Negative); Leukocyte Esterase Urine Negative (Negative); Nitrite Urine Negative (Negative); Specific Gravity - Urine <= 1.005 (1.005-1.025); Urine Blood Negative (Negative); Urine Ketones Negative (Negative); Urine Protein Negative (Neg-Trace)
== END 2022-12-03 07:38 | disposition home or self-care (01) ==
LOC: HO.10HDL 07:37
PROVIDERS: Visit Provider Internal Medicine
DX: R30.0 Dysuria (principal)
CPT/HCPCS: 81003; 87086

== ENCOUNTER → 2022-12-26 07:46 | Outpatient (REF) | payer OTHER, SELFPAY ==
--- NOTE | ~2022-12-26 | NM_ITS ---
EXAMINATION: NM MECKEL'S DIVERTICULUM SCAN CLINICAL INFORMATION: Abdominal pain. Abnormal CT scan involving distal small bowel and cecum seen on CT scan of the abdomen and pelvis done on 09/08/2022 showing interval resolution on the subsequent MRI of the abdomen and pelvis done on 11/19/2022. COMPARISON: Discussion of the abdomen and pelvis done on 09/08/2022 and MRI of the abdomen and pelvis done on 11/19/2022. TECHNIQUE: Serial gamma scintillation camera images were obtained over the abdomen for a total observation period of 60 minutes following the intravenous administration of 10 mCi Tc-99m pertechnetate. Additional planar images were also obtained in NAURUAN, CROOKS and right lateral projections at 60 minutes. FINDINGS: There is normal progressive accumulation of activity within the stomach and urinary bladder. No unexplained focus of accumulation is noted. NM/NM Meckel's IMPRESSION: No evidence of a Meckel's diverticulum containing ectopic gastric mucosa.
== END ==
LOC: HO.NUCMED 07:46
PROVIDERS: PCP Internal Medicine; Visit Provider Internal Medicine
DX: R10.84 Generalized abdominal pain (principal); R93.3 Abnormal findings on diagnostic imaging of other parts of digestive tract
CPT/HCPCS: 78290; A9512

== ENCOUNTER 2023-01-19 11:33 | Outpatient (REF) | payer OTHER, SELFPAY ==
[2023-01-19 14:08] LABS: Appearance Urine Turbid; Color Urine Yellow; Glucose Urine UA Negative (Negative); Leukocyte Esterase Urine Negative (Negative); Nitrite Urine Negative (Negative); PH 5.5 (5.0-9.0); Specific Gravity - Urine 1.025 (1.005-1.025); Urine Blood Negative (Negative); Urine Ketones Negative (Negative); Urine Protein Negative (Neg-Trace)
== END 2023-01-19 11:34 | disposition home or self-care (01) ==
LOC: HO.10HDLNP 11:33
PROVIDERS: Visit Provider Internal Medicine
DX: R30.0 Dysuria (principal)
CPT/HCPCS: 81003; 87086

== ENCOUNTER 2023-04-20 16:07 | Outpatient (REF) | payer OTHER, SELFPAY ==
[2023-04-20 16:21] LABS: MANUAL DIFF FLAG NO
[2023-04-20 16:45] LABS: Basophils Absolute Auto 0.1 X10*3/uL (0.0-0.2); Basophils Percent Auto 0.6 % (0-2); Eosinophils Absolute Auto 0.3 X10*3/uL (0.0-0.4); Eosinophils Percent Auto 2.5 % (0-4); Hematocrit 38.1 % (37.0-47.0); Hemoglobin 12.7 g/dl (12.0-16.0); Imm Gran Abs Auto 0.03 X10*3/uL (0.00-0.03); Imm Gran Pct Auto 0.3 % (0.0-0.4); Lymphocytes Absolute Auto 2.4 X10*3/uL (1.2-4.9); Lymphocytes Percent Auto 24.2 % (20-40); Mean Corpuscular HGB Conc 33.3 g/dl (31.0-35.0); Mean Corpuscular Hemoglobin 29.3 pg (27.0-33.0); Mean Corpuscular Volume 87.8 fL (80.0-98.0); Monocytes Absolute Auto 0.7 X10*3/uL (0.1-1.2); Neutrophils Absolute Auto 6.4 x10*3/uL (2.0-8.3); Neutrophils Percent Auto 65.4 % (45-73); Platelet Count 352 X10*3/uL (160-400); Red Blood Count 4.34 X10*6/uL (4.20-5.50); Red Cell Distribution Width 12.5 % (11.0-16.0); White Blood Count 9.9 X10*3/uL (4.8-10.8)
[2023-04-20 17:02] LABS: Appearance Urine Clear; Color Urine Yellow; Glucose Urine UA Negative (Negative); Leukocyte Esterase Urine Negative (Negative); Nitrite Urine Negative (Negative); Specific Gravity - Urine 1.025 (1.005-1.025); Urine Blood Negative (Negative); Urine Ketones Trace mg/dL (Negative); Urine Protein Negative (Neg-Trace)
[2023-04-20 17:24] LABS: C Reactive Protein 0.67 mg/dL (< or = 0.50)
== END 2023-04-20 16:08 | disposition home or self-care (01) ==
LOC: HO.LAB 16:07
PROVIDERS: PCP Internal Medicine; Visit Provider Internal Medicine
DX: R10.9 Unspecified abdominal pain (principal); R30.0 Dysuria
CPT/HCPCS: 36415; 81003; 85025; 86140; 87086; 87147

== ENCOUNTER 2023-04-22 10:30 | Outpatient (REF) | payer OTHER, SELFPAY ==
--- NOTE | ~2023-04-22 | US_ITS ---
EXAMINATION: US PELVIS CLINICAL INFORMATION: Pain COMPARISON: Previous pelvic ultrasound and abdominal and pelvic CT scan August 2022 TECHNIQUE: Ultrasound of the pelvis is performed using both transabdominal and transvaginal transducers along with Doppler. Transvaginal imaging is performed due to inadequate visualization transabdominally. FINDINGS: The uterus is anteverted and measures 9.3 x 6.4 x 8.5 cm in dimension. There is a 1.1 x 2.3 x 1.2 cm area isoechoic to the uterine myometrium adjacent to the right fundus of the uterus. This is similar-appearing to previous ultrasound August 2022. Again, no CT correlate is seen August 2022. This does not have typical appearance of a fibroid. No other focal uterine lesion. The endometrium does not appear thickened. 0.4 cm. There is fluid and heterogeneous material in the endometrial cavity. There are nabothian cysts in the cervix. The ovaries are normal. The right ovary measures 2.2 x 1.3 x 1.4 cm. Left ovary measures 3.5 x 2.1 x 1.8 cm. The ovaries are normal-appearing. There is a small amount of fluid in the pelvis. US/US pelvic and transvaginal IMPRESSION: Fluid and heterogeneous material in the endometrial cavity. Correlation with test recommended. Similar-appearing solid-appearing soft tissue isoechoic with the uterine myometrium adjacent to the right uterine fundus of uncertain etiology. No CT correlate seen. Normal-appearing ovaries. Small amount of fluid in the pelvis. Findings will be communicated by the [place] work flow student services counselor.
== END 2023-04-22 10:31 | disposition home or self-care (01) ==
LOC: HO.US 10:30
PROVIDERS: PCP Internal Medicine; Visit Provider Internal Medicine
DX: R10.2 Pelvic and perineal pain (principal)
CPT/HCPCS: 76830; 76856

== ENCOUNTER 2023-04-23 12:57 | Outpatient (REF) | payer OTHER, SELFPAY ==
--- NOTE | ~2023-04-23 | CT_ITS ---
EXAMINATION: CT ABDOMEN AND PELVIS WITH CONTRAST CLINICAL INFORMATION: 47-year-old female with lower abdominal pain COMPARISON: 09/08/2022 TECHNIQUE: Multidetector volumetric images were obtained from the superior aspect of the liver through the pubic symphysis following administration 85 mL of Omnipaque 350 intravenous contrast. Sagittal and coronal reformatted images were obtained on the technologist's workstation. Oral contrast: Yes This CT examination was performed using dose optimization techniques as appropriate, variously including the following: *Automated exposure control *Adjustment of mA and/or kV according to patient size (this includes techniques or standardized protocols for targeted exams where dose is matched to indication/reason for exam; i.e. extremities or head) *Use of iterative reconstruction technique DLP: 660 mGy-cm FINDINGS: LUNG BASES: Linear atelectasis seen in the left lung base LIVER, GALLBLADDER, AND BILIARY TREE: The liver is normal in size, shape, and attenuation. No focal hepatic lesion or biliary ductal dilatation is present. Peripherally calcified stones are seen in the gallbladder PANCREAS: Unremarkable. SPLEEN: Unremarkable. ADRENAL GLANDS: Unremarkable. KIDNEYS AND URETERS: The kidneys are normal in size, shape, and attenuation. No hydronephrosis, hydroureter, or calculi seen. No perinephric stranding. BLADDER: Unremarkable. GASTROINTESTINAL TRACT: Normal appendix is visualized surrounded by extensive inflammatory changes in the right lower quadrant, more prominent than on the previous study and surrounding abnormal small bowel loops in the pyelogram. Findings suggestive for inflammatory bowel disease. Colonic loops are unremarkable. There are mild changes of diverticulosis in the sigmoid colon. ABDOMINAL WALL: No significant hernia is appreciated. LYMPH NODES: Normal. VASCULAR: Unremarkable. PELVIC VISCERA: The uterus is enlarged, enhanced with fluid in endometrium, correlate with hCG level. Adnexa on the left unremarkable but on the right eye inseparable from inflammatory changes in the right lower quadrant OSSEOUS STRUCTURES: There is pars defect and L5 on the left CT/CT abdomen pelvis w IV con IMPRESSION: 1. Extensive inflammatory changes in the right lower quadrant, most likely inflammatory bowel disease, Crohn's enteritis. Normal appendix visualized. 2. Cholelithiasis without cholecystitis. 3. Diverticulosis without diverticulitis. 4. Enlarged uterus with fluid in endometrium, correlate with hCG level. 5. 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 Fleischner guidelines were followed.
[2023-04-23] MEDS: iohexoL 350 MG/ML 100 ML INFUS..BTL 85 ML IV (15:59)
[2023-04-23] MEDS: Barium Sulfate Oral (Vanilla) 450 ML ORAL.SUSP 900 ML PO (16:00)
== END 2023-04-23 12:58 | disposition home or self-care (01) ==
LOC: HO.CT 12:57
PROVIDERS: PCP Internal Medicine; Visit Provider Internal Medicine
DX: R10.2 Pelvic and perineal pain (principal)
CPT/HCPCS: 74177; Q9967

== ENCOUNTER 2023-04-30 08:08 | Outpatient (REF) | payer OTHER, SELFPAY ==
[2023-04-30 10:43] LABS: MANUAL DIFF FLAG NO
[2023-04-30 10:50] LABS: Basophils Absolute Auto 0.1 X10*3/uL (0.0-0.2); Basophils Percent Auto 0.5 % (0-2); Eosinophils Absolute Auto 0.1 X10*3/uL (0.0-0.4); Eosinophils Percent Auto 0.5 % (0-4); Hematocrit 39.9 % (37.0-47.0); Hemoglobin 13.2 g/dl (12.0-16.0); Imm Gran Abs Auto 0.09 X10*3/uL (0.00-0.03); Imm Gran Pct Auto 0.6 % (0.0-0.4); Lymphocytes Absolute Auto 3.1 X10*3/uL (1.2-4.9); Lymphocytes Percent Auto 21.7 % (20-40); Mean Corpuscular HGB Conc 33.1 g/dl (31.0-35.0); Mean Corpuscular Hemoglobin 29.2 pg (27.0-33.0); Mean Corpuscular Volume 88.3 fL (80.0-98.0); Monocytes Absolute Auto 0.6 X10*3/uL (0.1-1.2); Monocytes Percent Auto 4.3 % (2-11); Neutrophils Absolute Auto 10.4 x10*3/uL (2.0-8.3); Neutrophils Percent Auto 72.4 % (45-73); Platelet Count 506 X10*3/uL (160-400); Red Blood Count 4.52 X10*6/uL (4.20-5.50); Red Cell Distribution Width 12.4 % (11.0-16.0); White Blood Count 14.3 X10*3/uL (4.8-10.8)
[2023-04-30 11:15] LABS: Alanine Aminotransferase 8 U/L (0-31); Albumin Level 4.3 g/dL (3.5-5.0); Alkaline Phosphatase 66 U/L (39-117); Amylase 44 U/L (28-100); Anion Gap 12 (12-20); Aspartate Amino Transferase 14 U/L (5-31); Bilirubin Direct 0.2 mg/dL (0.0-0.5); Bilirubin Total 0.4 mg/dL (0.0-1.0); Blood Urea Nitrogen 14 mg/dL (9-16); C Reactive Protein 0.38 mg/dL (< or = 0.50); Calcium 9.5 mg/dL (8.4-10.2); Carbon Dioxide 27 mmol/L (22-29); Chloride 105 mmol/L (96-108); Estimated Glomerular Filt Rate > 60; Glucose Random 79 mg/dL (60-115); Lipase 18 U/L (8-78); Potassium 4.2 mmol/L (3.3-5.1); Sodium 140 mmol/L (135-145); Total Protein 7.4 g/dL (6.5-8.0)
[2023-04-30 11:25] LABS: UPreg QC Valid YES; Urine Pregnancy NEGATIVE (NEGATIVE)
[2023-04-30 11:29] LABS: Erythrocyte Sedimentation Rate 26 MM/HR (0-20)
== END 2023-04-30 08:09 | disposition home or self-care (01) ==
LOC: HO.10HDL 08:08
PROVIDERS: Visit Provider Internal Medicine
DX: R10.84 Generalized abdominal pain (principal); R93.3 Abnormal findings on diagnostic imaging of other parts of digestive tract
CPT/HCPCS: 36415; 80053; 81025; 82150; 82248; 83690; 85025; 85652; 86140

== ENCOUNTER 2023-05-04 12:31 | Day surgery (SDC) | payer OTHER, SELFPAY ==
--- NOTE | 2023-05-01 14:06 | HO.ANESPROP2 ---
Documented by User: Susie Ramirez NP 05/01/23 14:08 HPI - Anesthesia Eval Consult details Narrative: 47yo F for Colonoscopy PMFSH Active Problems Active Problems: All Active Problems (Updated 09/27/20 @ 14:58 by Mark Vasquez MD) Lower abdominal pain (Acute) Past Medical History Medical History (Updated 05/04/23 @ 14:00 by Blessing Dumont MD) Ectopic Kidney stone Lower abdominal pain Family History Family History Sister History of breast cancer History of ovarian cancer Family history of problems with anesthesia: No Surgical History Surgical History (Updated 05/04/23 @ 13:59 by Blessing Dumont MD) History of section History of extraction of renal calculus History of nasal surgery History of salpingectomy History of salpingectomy History of surgery of uterus History of tubal ligation History of Problems with Anesthesia: No Social History Social History Alcohol intake: never Patient Tobacco Use Status: Current someday Tobacco user Advance Directives: No Advance Directives Information Provided: Yes Meds Allergies Allergy/AdvReac Type Severity Reaction Status Date / Time No Known Allergies Allergy Verified 01/16/22 08:30 Home Medications Medication Instructions Recorded Confirmed Last Taken Type oxycodone 5 mg tablet mg PO 09/27/20 01/16/22 Unknown History ferrous sulfate 325 mg (65 mg 325 mg PO DAILY 01/16/22 01/16/22 Unknown History iron) tablet Exam Exam Date and Time: May 01, 2023 1406 Pertinent Lab Results Pertinent Lab Results: Laboratory Tests 04/30/23 04/30/23 08:07 08:07 WBC 14.3 H Hgb 13.2 Hct 39.9 Plt Count 506 H D Sodium 140 Potassium 4.2 Chloride 105 Carbon Dioxide 27 BUN 14 Creatinine 0.77 Assessment and Plan Assessment Anesthesia Assessment: Chart Reviewed Final Anesthetic Review Family History of Problems with Anesthesia: No History of Problems with Anesthesia: No Documented by User: Blessing Dumont MD 05/04/23 14:00 HPI - Anesthesia Eval Consult details Narrative: 47yo F for Colonoscopy for abdominal pain PMFSH Active Problems Active Problems: All Active Problems (Updated 05/04/23 @ 13:20 by Blessing Dumont MD) Lower abdominal pain (Acute) Morbid Obesity BMI 41.6 Denies SMILEY Past Medical History Medical History (Updated 05/04/23 @ 14:00 by Blessing Dumont MD) Ectopic Kidney stone Lower abdominal pain Family History Family History Sister History of breast cancer History of ovarian cancer Surgical History Surgical History (Updated 05/04/23 @ 13:59 by Blessing Dumont MD) History of section History of extraction of renal calculus History of nasal surgery History of salpingectomy History of salpingectomy History of surgery of uterus History of tubal ligation Social History Social History Alcohol intake: never Patient Tobacco Use Status: Current someday Tobacco user Advance Directives: No Advance Directives Information Provided: Yes Meds Allergies Allergy/AdvReac Type Severity Reaction Status Date / Time No Known Allergies Allergy Verified 01/16/22 08:30 Home Medications Medication Instructions Recorded Confirmed Last Taken Type oxycodone 5 mg tablet mg PO 09/27/20 01/16/22 Unknown History ferrous sulfate 325 mg (65 mg 325 mg PO DAILY 01/16/22 01/16/22 Unknown History iron) tablet Exam Height,Weight and Vital Signs: Height 4 ft 11 in Weight 93.44 kg Vital Signs Temp Pulse Resp BP Pulse Ox O2 Del Method 05/04/23 13:44 98.1 F 66 18 120/85 96 Room Air Airway Mallampati Class: II TM Dist: >3cm Neck ROM: Full Loose/Missing/Broken Teeth: Yes (Loose tooth bottom front) Heart: RRR Lungs: CTAB Assessment and Plan Assessment Anesthesia Assessment: Anesthesia Plan Discussed Final Anesthetic Review NPO: Yes ASA Class: III Final Preanesthetic Review: No Changes in Pt Med Stat, Meds/Allgs Chart Reviewed, Consent Obtained/Reviewed and Anes Risks/Benef Reviewed Patient Risk: Intermediate Procedure Risk: Low Assessment/Block/Sedation in SS: Assess/Block/Sedation-SS Anesthetic Plan Anesthetic Plan: MAC: Disposition: Standard PACU
[2023-05-04 13:43] VITALS: BMI 41.6
[2023-05-04 13:44] VITALS: BP 120/85; PULSE 66; RESP 18; TEMP 36.7; O2SAT 96
[2023-05-04] MEDS: Lactated Ringers 1,000 ML 100 ML IVCONT (13:45)
[2023-05-04 14:34] VITALS: BP 92/65; PULSE 84; RESP 16; TEMP 36.4; O2SAT 96
[2023-05-04 14:39] VITALS: BP 102/65; PULSE 72; RESP 16; O2SAT 98
--- NOTE | 2023-05-04 14:41 | P.BOP_ITS ---
Brief Operative Note Date of Service: 05/04/23 Pre-op diagnosis: Abnormal CT of GI tract Post-op diagnosis: other (Polyp, Diverticulosis) Procedure: Colonoscopy to the cecum and TI with biopsies, and bx/removal of polyp Surgeon: Theodore Puente Anesthesia: MAC Was an Engineering Team Supervisor used for this Procedure?: No Estimated blood loss (mL): 2.0 Pathology: other (A. Terminal ileum B. Polyp at 50cm) Condition: stable Disposition: PACU
[2023-05-04 14:44] VITALS: BP 104/57; PULSE 73; RESP 16; O2SAT 97
[2023-05-04 14:48] VITALS: BP 131/90; PULSE 75; RESP 16; TEMP 36.8; O2SAT 99
--- NOTE | 2023-05-05 01:33 | OP_ITS ---
DATE OF SERVICE: 05/04/2023 SURGEON: Theodore Puente MD INDICATIONS: The patient presents for evaluation of recurrent abdominal pain and an abnormal CT scan of the GI tract suggestive of Crohn's disease involving the terminal ileum. Full consent has been obtained from her for this, including risks of bleeding and perforation. PREOPERATIVE DIAGNOSIS: POSTOPERATIVE DIAGNOSIS: PROCEDURE PERFORMED: Colonoscopy to the cecum and terminal ileum with biopsies, and biopsy removal of polyp. ESTIMATED BLOOD LOSS: COMPLICATIONS: ANESTHESIA: Medication Used: Monitored anesthesia care. ASSISTANTS: SPECIMENS: PREOPERATIVE DIAGNOSES: Abdominal pain and abnormal CT of gastrointestinal tract. POSTOPERATIVE DIAGNOSES: Abdominal pain and abnormal CT of gastrointestinal tract, colon polyp, mild sigmoid diverticulosis, internal hemorrhoids, and normal terminal ileum. DESCRIPTION OF PROCEDURE: The patient was placed in the left lateral decubitus position. The digital rectal exam revealed no perianal disease. The Olympus video pediatric colonoscope was entered into the rectum and advanced easily to the cecum. Once in the cecum, I did identify normal-appearing cecal pouch with appendiceal orifice and a normal-appearing ileocecal valve. The terminal ileum was cannulated for least 10 to 15 cm and appeared normal. There was no sign of any Crohn's disease nor any other abnormalities. Multiple biopsies were obtained. The scope was withdrawn back in the colon. The entire cecum and ileocecal valve appeared normal. The scope was then slowly withdrawn, assessing all mucosal surfaces carefully. Preparation was excellent. I did not visualize any sign of colitis nor angiodysplasia. At 50 cm, there was a flat approximately 4 or 5 mm polyp, which was biopsied and completely removed with cold biopsy forceps. I did not visualize any other polyps. There was a mild amount of sigmoid diverticulosis. In the rectum, scope was retroflexed, visualizing internal hemorrhoids, but no other pathology. The rectal mucosa appeared normal. The scope was straightened and withdrawn from the patient. She tolerated the procedure well and was returned to the recovery area in stable condition. IMPRESSION: 1. Small colon polyp, status post biopsy removal. 2. Mild diverticulosis. 3. Small internal hemorrhoids. 4. Normal terminal ileum and no sign of Crohn's disease PLAN: The results of the biopsies will be checked. If the colon polyp is a tubular adenoma, I would recommend a followup colonoscopy in 5 years. If it is only hyperplastic, I would recommend a followup colonoscopy in 10 years for screening. In regard to her issues of intermittent abdominal pain and abnormal imaging studies, this has been going on since at least [address] scan at that time. At this point, it is not clear as to the etiology of her symptoms and CT scan findings given that her CT scan just about 10 days ago showed significant abnormalities and the colonoscopy looked very normal today within the small bowel and colon. We may need to consider further workup with a small bowel video capsule study. She has also already had a magnetic resonance enterography study, which was normal. Another possibility would be some type of vascular issue causing these intermittent symptoms and CT scan findings. Lastly, in discussing things with her today, she does admit to using a fair amount of NSAIDs intermittently. She does recall using NSAIDs before this most recent flare of her abdominal pain and subsequent abnormal CT scan. Therefore, she may be having a NSAID-induced ileitis/colitis. I did review this with her and have advised her to avoid all NSAIDs going forward to see if that can help to prevent further episodes of her pain and abnormal CT scans. She will be followed up in the office as well. MD MAIN [facility]/PATTI / [id number] MTDD
== END 2023-05-04 15:41 | disposition home or self-care (01) ==
PROVIDERS: PCP Internal Medicine; Visit Provider Internal Medicine
PROC: 0DJD8ZZ Inspection of Lower Intestinal Tract, Via Natural or Artificial Opening Endoscopic (ICD-10-PCS; CPT 45378; principal; 2023-05-04 13:50)
DX: R10.84 Generalized abdominal pain (principal); D12.5 Benign neoplasm of sigmoid colon; K57.30 Diverticulosis of large intestine without perforation or abscess without bleeding; K64.8 Other hemorrhoids; K58.9 Irritable bowel syndrome, unspecified; D64.9 Anemia, unspecified; K80.20 Calculus of gallbladder without cholecystitis without obstruction; Z87.442 Personal history of urinary calculi; Z79.1 Long term (current) use of non-steroidal anti-inflammatories (NSAID); Z98.890 Other specified postprocedural states
CPT/HCPCS: 45380; 88305

== ENCOUNTER 2023-11-19 11:35 | Outpatient (REF) | payer OTHER, SELFPAY | END 2023-11-19 11:36 | disposition home or self-care (01) | LOC: HO.XRAY 11:35 | PROVIDERS: PCP Internal Medicine; Visit Provider Internal Medicine | DX: R05.9 Cough, unspecified (principal) | CPT/HCPCS: 71046 ==

== ENCOUNTER 2023-12-02 13:45 | Outpatient (REF) | payer OTHER, SELFPAY ==
--- NOTE | ~2023-12-02 | US_ITS ---
EXAMINATION: US PELVIS CLINICAL INFORMATION: Pelvic pain; the last menstrual period is uncertain. COMPARISON: Prior pelvic ultrasound examinations, most recently 04/22/2023; MRI pelvis dated 11/27/2022; CT abdomen and pelvis dated 05/03/2023. TECHNIQUE: Ultrasound of the pelvis is performed using both transabdominal and transvaginal transducers along with Doppler. Transvaginal imaging is performed due to inadequate visualization transabdominally. FINDINGS: Uterus: The uterus is anteverted and anteflexed. The uterus measures 11.0 x 6.3 x 7.7 cm. The endometrial stripe is poorly visualized. Within the endometrial canal, a heterogeneous echotexture collection is seen, measuring 4.7 x 3.3 x 5.8 cm. This shows no associated color Doppler flow. This was seen on the MRI examination dated 11/19/2022, and dimensions are mildly increased from the pelvic ultrasound of 04/22/2023, when this heterogeneous collection measured approximately 3.3 x 1.8 x 5.2 cm (40 and 37/61). The uterus is smooth in contour and has normal myometrial echogenicity. No visible fibroid. Adnexa: Both ovaries are visualized. There is normal color flow to the adnexa. There is no ovarian torsion. There is mild to moderate free fluid within the cul-de-sac. Right ovary measures 2.3 x 2.6 x 2.5 cm, volume 11.2 mL. The right ovary contains a 2.4 cm benign, simple dominant follicle, for which no imaging follow-up is recommended. Left ovary measures 4.4 x 4.1 x 4.5 cm, volume 42.5 mL. The left ovary contains a 4.3 cm benign, simple cyst, for which no imaging follow-up is recommended. US/US pelvic and transvaginal IMPRESSION: 1. There is mild interim increase in a chronic heterogeneous cystic and solid collection situated within the endometrial canal. This shows no associated color Doppler flow. Again, this may represent blood products accumulating as a result of uterine synechiae or cervical stenosis. Gynecology evaluation and management are recommended. 2. The endometrial lining is poorly visualized. 3. There are benign, simple dominant bilateral ovarian cysts, as detailed, for which no imaging follow-up is recommended. 4. There is a small to moderate amount of free fluid within the cul-de-sac.
== END 2023-12-02 13:46 | disposition home or self-care (01) ==
LOC: HO.US 13:45
PROVIDERS: PCP Internal Medicine; Visit Provider Internal Medicine
DX: R10.2 Pelvic and perineal pain (principal)
CPT/HCPCS: 76830; 76856

== ENCOUNTER 2023-12-28 10:18 | Outpatient (REF) | payer OTHER, SELFPAY ==
--- NOTE | ~2023-12-28 | XR_ITS ---
EXAMINATION: XR CHEST CLINICAL INFORMATION: Pneumonia COMPARISON: 11/19/2023 TECHNIQUE: 2 views of the chest were obtained. FINDINGS: Lungs are well-inflated and clear. Interval resolution of the previously observed platelike atelectasis in the left perihilar region. Trachea is midline in position. No interstitial disease, consolidation or mass. No pleural effusion or pneumothorax. Cardiac silhouette and pulmonary vessels are normal in size. The mediastinum and angeli have normal contour. The visualized bones and upper abdomen are unremarkable. XR/XR chest 2V IMPRESSION: Lungs have a normal appearance. No acute cardiopulmonary abnormality.
== END 2023-12-28 10:19 | disposition home or self-care (01) ==
LOC: HO.XRAY 10:18
PROVIDERS: PCP Internal Medicine; Visit Provider Internal Medicine
DX: J18.9 Pneumonia, unspecified organism (principal)
CPT/HCPCS: 71046

== ENCOUNTER 2024-04-21 08:55 | Outpatient (REF) | payer OTHER, SELFPAY ==
[2024-04-21 09:16] LABS: IDNOW Serial# 08D9AD1C; Strep A Nucleic Acid Negative (Negative)
[2024-04-21 16:23] LABS: Influenza A PCR NEGATIVE (Negative); Influenza B PCR NEGATIVE (Negative); Resp Syncy Virus RNA Qual PCR NEGATIVE (Negative); SARS COV2 PCR INHOUSE NEGATIVE (Negative)
== END 2024-04-21 08:56 | disposition home or self-care (01) ==
LOC: HO.LNP 08:55
PROVIDERS: Visit Provider Internal Medicine
DX: J02.9 Acute pharyngitis, unspecified (principal)
CPT/HCPCS: 0241U; 87651

== ENCOUNTER 2024-05-09 10:56 | Outpatient (REF) | payer OTHER, SELFPAY ==
[2024-05-09 13:25] LABS: MANUAL DIFF FLAG NO
[2024-05-09 13:30] LABS: Basophils Absolute Auto 0.1 X10*3/uL (0.0-0.2); Eosinophils Absolute Auto 0.2 X10*3/uL (0.0-0.4); Eosinophils Percent Auto 2.5 % (0-4); Hematocrit 36.6 % (37.0-47.0); Hemoglobin 12.6 g/dl (12.0-16.0); Imm Gran Abs Auto 0.02 X10*3/uL (0.00-0.03); Imm Gran Pct Auto 0.3 % (0.0-0.4); Lymphocytes Absolute Auto 2.2 X10*3/uL (1.2-4.9); Lymphocytes Percent Auto 30.5 % (20-40); Mean Corpuscular HGB Conc 34.4 g/dl (31.0-35.0); Mean Corpuscular Hemoglobin 29.8 pg (27.0-33.0); Mean Corpuscular Volume 86.5 fL (80.0-98.0); Mean Platelet Volume 9.2 fL (9.4-12.3); Monocytes Absolute Auto 0.5 X10*3/uL (0.1-1.2); Monocytes Percent Auto 7.3 % (2-11); Neutrophils Absolute Auto 4.2 x10*3/uL (2.0-8.3); Neutrophils Percent Auto 58.4 % (45-73); Platelet Count 329 X10*3/uL (160-400); Red Blood Count 4.23 X10*6/uL (4.20-5.50); Red Cell Distribution Width 12.5 % (11.0-16.0); White Blood Count 7.1 X10*3/uL (4.8-10.8)
[2024-05-09 13:53] LABS: Alanine Aminotransferase 8 U/L (0-31); Albumin Level 4.2 g/dL (3.5-5.0); Alkaline Phosphatase 72 U/L (39-117); Anion Gap 10 (12-20); Aspartate Amino Transferase 15 U/L (5-31); Bilirubin Total 0.6 mg/dL (0.0-1.0); Blood Urea Nitrogen 12 mg/dL (9-16); Calcium 9.3 mg/dL (8.4-10.2); Carbon Dioxide 27 mmol/L (22-29); Chloride 105 mmol/L (96-108); Estimated Glomerular Filt Rate > 60; Glucose Random 81 mg/dL (60-115); Potassium 3.9 mmol/L (3.3-5.1); Sodium 138 mmol/L (135-145); Total Protein 6.9 g/dL (6.5-8.0)
== END 2024-05-09 10:57 | disposition home or self-care (01) ==
LOC: HO.10HDL 10:56
PROVIDERS: Visit Provider Internal Medicine
DX: R10.9 Unspecified abdominal pain (principal)
CPT/HCPCS: 36415; 80053; 85025

== ENCOUNTER 2024-09-06 07:31 | Outpatient (REF) | payer OTHER, SELFPAY ==
[2024-09-07 19:03] LABS: Follicle Stimulating Hormone 57.5 mIU/mL; Lutenizing Hormone 39.4 mIU/mL
== END 2024-09-06 07:32 | disposition home or self-care (01) ==
LOC: HO.LAB 07:31
PROVIDERS: PCP Internal Medicine; Visit Provider Internal Medicine
DX: Z78.0 Asymptomatic menopausal state (principal)
CPT/HCPCS: 36415; 83001; 83002

== ENCOUNTER 2025-04-07 15:09 | Outpatient (AMB) | payer OTHER, SELFPAY ==
--- NOTE | 2025-04-07 15:08 | A.OFFPC_ITS ---
Vital Signs 04/07/25 15:13 Height 4 ft 11 in Weight 197 lb BMI 39.8 Temp 97.6 F Temp Source Axillary Pulse Oximetry (%) 98 Oxygen Delivery Method Room Air Intake Visit Reasons: telehealth Preschool Disability Teacher Required: No Accompanied by: Self / Same As Patient Allergies No Known Allergies Allergy (Verified 04/07/25 15:09) Tobacco use date assessed: 04/07/25 Dental Screening Dental Screen Date: 04/07/25 Did you have a dental visit in the last 12 months?: Yes Did you have a dental problem in the last 6 months where you did not have access to dental care?: No HPI HPI Comments History of Present Illness Details The patient is a 49 year old female with a past medical history of obesity presenting for weight management. She has been consistently losing weight with the use zepbound for the past year. Reports weight one year ago was 223lb at her heaviest. BMI has decreased from 45 to 39.8 (height today 4'11 , weight 197lb). Prior to starting the GLP-1 agonist she was unsuccessful despite more than one year of daily exercise, reduced calorie diet. She tolerates the medication ROS CONSTITUTIONAL: Denies weight loss, fever and chills. HEENT: Denies changes in vision and hearing. RESPIRATORY: Denies SOB and cough. CV: Denies palpitations and CP GI: Denies abdominal pain, nausea, vomiting and diarrhea. : Denies dysuria and urinary frequency. MSK: Denies new myalgia and joint pain. SKIN: Denies rash and pruritus. NEUROLOGICAL: Denies headache PSYCHIATRIC: Denies recent changes in mood. PHYSICAL EXAM: [facility] Medical History Lower abdominal pain Ectopic Kidney stone Surgical History History of salpingectomy History of salpingectomy History of surgery of uterus History of nasal surgery History of section History of extraction of renal calculus History of tubal ligation Family History Sister History of breast cancer History of ovarian cancer Mother No problems noted. Father No problems noted. Social History Housing: House Alcohol intake: never Patient Tobacco Use Status: Never used Tobacco e-Cigarette/Vaping Use: Never Used service: No Current occupational status: employed Cognitive needs: No Hearing needs: No Vision needs: No Questionnaire PHQ-9 Over the last 2 weeks, how often have you been bothered by any of the following problems? 1. Little interest or pleasure in doing things: not at all 2. Feeling down, depressed, or hopeless: not at all 3. Trouble falling or staying asleep, or sleeping too much: not at all 4. Feeling tired or having little energy: not at all 5. Poor appetite or overeating: not at all 6. Feeling bad about yourself - or that you are a failure or have let yourself or your family down: not at all 7. Trouble concentrating on things, such as reading the newspaper or watching television: not at all 8. Moving or speaking so slowly that other people could have noticed. Or the opposite - being so fidgety or restless that you have been moving around a lot more than usual: not at all 9. Thoughts that you would be better off or of hurting yourself in some way: not at all Total score: 0 Source: Developed by Drs. Theodore Lowry, Vianey Matute, Reji Sibley and colleagues, with an educational lynn from [employer]. Thrive Questionnaire Date Thrive assessed: 04/07/25 I am a: Patient Within the past 12 months, did the food you bought not last and you didn't have the money to get more?: Never true Within the past 12 months, did you worry whether your food would run out before you got money to buy more?: Never true Do you have trouble paying for medicines?: No Do you have trouble getting transportation to medical appointments?: No Do you have trouble paying your heating and electricity bill?: No Do you have trouble taking care of your child, family member or friend?: No Do you have trouble with day-to-day activities such as bathing, preparing meals, shopping, managing finances, etc.?: No Are you currently unemployed and looking for a job?: No Are you interested in more education?: No THRIVE Score: 0 AUDIT C Alcohol Use Questionnaire (AUDIT-C) 1. How often do you have a drink containing alcohol?: Monthly or less 2. How many drinks containing alcohol do you have on a typical day when you are drinking?: 1 or 2 3. How often do you have six or more drinks on one occasion?: Less than monthly Total Score: 2 VINNIE-7 AMB Questionnaire VINNIE-7 Date VINNIE - 7 assessed: 04/07/25 Feeling nervous, anxious, or on edge: 0 = Not at all Not being able to stop or control worryin = Not at all Worrying too much about different things: 0 = Not at all Trouble relaxin = Not at all Being so restless that it is hard to sit still: 0 = Not at all Becoming easily annoyed or irritable: 0 = Not at all Feeling afraid as if something awful might happen: 0 = Not at all Total VINNIE-7 score (0-4 normal; 5-9 mild; 10-14 moderate; 15-21 severe): 0 Source: Developed by Drs. Theodore Lowry, Vianey Matute, Reji Sibley and colleagues, with an educational lynn from [employer]. Physical exam (Primary Care) Vital Signs: Last Vital Signs Temp 97.6 F 04/07/25 15:13 Pulse Ox 98 04/07/25 15:13 Oxygen Delivery Method Room Air 04/07/25 15:13 BMI result Body Mass Index 39.8 Tobacco/Smoking Status: Tobacco use Status Tobacco use date assessed 04/07/25 04/07/25 15:16 Patient Tobacco Use Status Never used Tobacco 04/07/25 15:16 e-Cigarette/Vaping Use Never Used 04/07/25 15:16 PHQ-9: PHQ-9 Score PHQ-9: Total score 0 04/07/25 15:16 Thrive Assessment: Date of Thrive Assessment Date Thrive assessed 04/07/25 04/07/25 15:16 Coding Level of Care Code New Pt Level 3 (45365) Diagnoses Obesity (BMI 35.0-39.9 without comorbidity) E66.9 Assessment & Plan Assessment & Plan (1) Obesity (BMI 35.0-39.9 without comorbidity): Code(s): E66.9 - Obesity, unspecified Category: Medical Plan: The patient has maintained weight loss steadily over the past year She should continue use of GLP-1, specifically zepbound. Current dose 7.5mg weekly
--- OUTSIDE RECORDS SUMMARY | 2025-04-07 15:11 | XMS_ITS | Clinical Summary ---
Author Organization [address] [facility] Address [address] [place] [address] Phone Care Team Providers Care Supervisor Type Bar And Segment Name Role Phone Mark Staples MD Primary Care Provider [phone] Allergies No known active allergies Medications norethindrone (KASHIF,MACIE,HEA THER,MICRONOR) 0.35 mg tablet Take 1 tablet (0.35 mg total) by mouth 1 (one) time each day. Active silver sulfADIAZINE (Silvadene) 1 % cream Apply topically 1 (one) time each day. 50 g 4 09/22/20 25 Active Active Problems Problem Noted Date Diagnosed Date Low back pain 07/28/2024 Cervicalgia 07/28/2024 Other chest pain 07/28/2024 Other obesity due to excess calories 07/28/2024 Calculus of kidney with calculus of ureter 06/26 Overview (09/05/2024): 1998 and 05/2010. Right kidney with renal colic. Irritable bowel syndrome 06/26/2024 Abnormal ultrasound of endometrium 06/26/2024 Hydrosalpinx 06/26/2024 Diverticulitis 11/16/2021 Encounters Date Type Department Care Team Description 02/28/2025 4:00 PM EDT Office Visit [facility] [address] [place] [address] Rachel Starkey MD History of endometrial ablation (Primary Dx); History of tubal ligation from Last 3 Months Surgical History Surgery Date Site/Laterality Comments SECTION 05/2005 PROCEDURE: HISTORICAL DELIVERY LITHOTRIPSY 2014 PROCEDURE: HISTORICAL LITHOTRIPSY COLONOSCOPY PROCEDURE: NH COLONOSCOPY FLX DX W/COLLJ SPEC WHEN PFRMD; COMMENT: 2014, 2021, 2022. Age 39 negative, GI issues age 46 diverticulitis OTHER SURGICAL HISTORY 2003 PROCEDURE: NH COLPOSCOPY CERVIX UPPR/ADJCNT VAGINA W/CERVIX BX; COMMENT: NEDRA-1 SALPINGOOPHORECTOMY 2002 PROCEDURE: NH LAPAROSCOPY W/RMVL ADNEXAL STRUCTURES; COMMENT: Ectopic, right salpingectomy OTHER SURGICAL HISTORY 07/05/2018 PROCEDURE: NH HYSTEROSCOPY ENDOMETRIAL ABLATION OTHER SURGICAL HISTORY 06/2004 PROCEDURE: NH DESTRUCTION VAGINAL LESIONS SIMPLE; COMMENT: Laser ablation of vagina. Multifocal VAIN 1 CERVICAL BIOPSY W/ LOOP ELECTRODE EXCISION 06/2004 PROCEDURE: NH CONIZATION CERVIX W/WO D&C RPR ELTRD EXC; COMMENT: NEDRA-1 with free margins OTHER SURGICAL HISTORY 04/04/2021 PROCEDURE: HISTORY OTHER; COMMENT: Nasal fracture TUBAL LIGATION 2004 PROCEDURE: HISTORICAL TUBAL LIGATION OTHER SURGICAL HISTORY 12/31/2022 PROCEDURE: HISTORY OTHER; COMMENT: Hysteroscopy Dilation and Curettage under ultrasound guidance, Diagnostic laparoscopy, Right ovarian cystectomy, left ovarian cyst wall biopsy, lysis of adhesions, lysis of bowel adhesions. Medical History Medical History Date Comments Calculus of kidney DX:Calculus o f kidney; COMMENT: 1998 and 05/2010. Right kidney with renal colic. 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 Treated with LEEP and laser. Diverticulitis 2021 DX:Diverticuliti s Irritable bowel syndrome DX:Irri table bowel syndrome Vitamin D deficiency DX:Vitamin D deficiency Family History Medical History Relation Name Comments Breast cancer Sister 1 Ovarian cancer Sister 2 Relation Name Status Comments Sister 1 Sister 2 Social History Tobacco Use Types Packs/Day Years Used Date Smoking Tobacco: Never Assessed Comments Unknown Sex and Gender Information Value Date Recorded Sex Assigned at Not on file Legal Sex Female 1:12 PM EST Gender Identity Not on file Sexual Orientation Not on file Obstetrics History Last Filed Vital Signs Vital Sign Reading Time Taken Comments Blood Pressure 136/92 02/28/2025 4:28 PM EDT Pulse 83 02/28/2025 4:28 PM EDT Temperature 36.6 ??C (97.9 ??F) 02/28/2025 4:28 PM ED T Respiratory Rate - - Oxygen Saturation - - Inhaled Oxygen Concentration - - Weight 93 kg (205 lb) 02/28/2025 4:28 PM EDT Height 149.9 cm (4' 11.02 ) 12/14/2024 8:[address] Body Mass Index 41.38 12/14/2024 8:24 AM EST Plan of Treatment Upcoming Encounters Date Type Department Care Team (Late st Contact Info) Description 04/12/2025 8:15 AM EDT Office Visit Orthopedic Surgery - [place] [address] [address] Hesham Finney, DPM [address] [address] 04/25/2025 2:00 PM EDT Office Visit Obstetrics and Gynecology - [facility] [address] [place] [address] Adriana Wilkins CNM [address] [place] [address] Health Maintenance Due Date Last Done Comments Breast Cancer Screening 1976 DTaP,Tdap,and Td Vaccines (1 - Tdap) 1995 Hepatitis B Vaccines (1 of 3 - 19+ 3-dose series) 1995 Cholesterol Screening (Lipid Panel) 10/14/2022 Colorectal Cancer Screening: Colonoscopy 10/14/2022 Depression Screening 10/14/2022 HIV Screening 10/14/2022 Hepatitis C Screening 10/14/2022 Social Influencers of Health Screening 10/14/2022 COVID-19 Vaccine (3 - 2023-2 5 season) 2024 09/20/2021, 08/16/2021 Influenza Vaccine (Season Ended) 2025 Cervical Cancer Screening: P ap Smear 02/23/2027 02/24/2024 HIB Vaccines Aged Out No longer eligi ble based on patient's age to complete this topic HPV Vaccines Aged Out No longer eligi ble based on patient's age to complete this topic Hepatitis A Vaccines Aged Out No long er eligible based on patient's age to complete this topic IPV Vaccines Aged Out No longer eligi ble based on patient's age to complete this topic MMR Vaccines Aged Out No longer eligi ble based on patient's age to complete this topic Meningococcal ACWY Vaccine Aged Out N o longer eligible based on patient's age to complete this topic Meningococcal B Vaccine Aged Out No l onger eligible based on patient's age to complete this topic Pneumococcal Vaccine: Pediatrics (0 to 5 Years) and At-Risk Patients (6 to 64 Years) Aged Out No longer eligible b ased on patient's age to complete this topic RSV Immunization Patients Under 20 months Aged Out No longer eligible b ased on patient's age to complete this topic Varicella Vaccines Aged Out No longer eligible based on patient's age to complete this topic Procedures Procedure Name Priority Date/Time Associated Diagnosis Comments PAP SMEAR Routine 02/24/2024 from Last 3 Months or Most Recently Relevant to Health Maintenance Results * Pap Smear (02/24/2024) Pap smear No Interpretation , Abstracted Historical Provider HEALTH MAINTENANCE Final Result from Last 3 Months or Most Recently Relevant to Health Maintenance Insurance [facility] Care Teams Supervisor Type Bar And Segment Relationship Specialty Start Date End Date Mark Staples MD [address] [place] [address] Dr Honey [place] PCP - General 04/29/24
[2025-04-07 15:13] VITALS: TEMP 36.4; O2SAT 98; BMI 39.8
== END 2025-04-07 16:28 | disposition home or self-care (01) ==
LOC: HO.HMCHD 15:09
PROVIDERS: PCP Internal Medicine; Visit Provider Internal Medicine
DX: E66.9 Obesity, unspecified (principal)

== ENCOUNTER → 2025-04-07 15:09 | Outpatient (BNVA) | payer OTHER, SELFPAY | PROVIDERS: PCP Internal Medicine; Visit Provider Internal Medicine | DX: E66.9 Obesity, unspecified (principal); Z68.39 Body mass index [BMI] 39.0-39.9, adult | CPT/HCPCS: 99202 ==

== ENCOUNTER 2025-07-25 11:03 | Outpatient (REF) | payer OTHER, SELFPAY ==
--- OUTSIDE RECORDS SUMMARY | 2025-07-25 13:23 | XMS_ITS | Clinical Summary ---
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 Expectorate after use. Do not rinse, eat or drink for 30 minutes 51 g 3 0 Active Social History Tobacco Use Types Packs/Day Years Used Date Smoking Tobacco: Never Assessed Social Connections Answer Date Recorded Social Connections and Isolation 0 02/10/2020 Financial Resource Strain Answer Date R ecorded Financial Resource Strain 0 2019 Stress Answer Date Recorded Stress 0 02/10/2020 Physical Activity Answer Date Recorded Physical Activity 0 02/10/2020 Food Insecurity Answer Date Recorded Food 0 02/10/2020 Transportation Needs Answer Date Record ed Transportation 0 02/10/2020 Housing Stability Answer Date Recorded Housing 0 02/10/2020 Safety and Environment Answer Date Preet rded Safety 0 02/10/2020 Utilities Answer Date Recorded Utilities 0 02/10/2020 Employment Answer Date Recorded Employment 0 02/10/2020 Comments Unknown Sex and Gender Information Value Date Recorded Sex Assigned at Not on file Legal Sex Female 11:36 AM PDT Gender Identity Not on file Sexual Orientation Not on file Plan of Treatment Not on file Insurance [employer] Care Teams Aircraft Engine Mechanic Overhaul Relationship Specialty Start Date End Date Heather Ziegler DMD [address] [place] [address] PCP - General 01/25/21
--- OUTSIDE RECORDS SUMMARY | 2025-07-25 13:23 | XMS_ITS | Patient Health Record ---
Author Organization [facility] Address [address] [place] [phone] Care Team Providers Care Criminal Records Technician Name Role Phone Bel (RETIRED) Mark MARTINS Primary Care Provide r Theodore English Unavailable [phone] Allergies No Known Allergies Reason For Referral No Information Immunizations Vaccine Route Administration Date Status Comme nts Influenza Unknown 02/26/2022 Refused Influenza Unknown 10/29/2022 Refused Social History Tobacco Use: Social History Observation Description Date Details (start date - stop date) Never Smoker NA - NA Tobacco Use/Smoking Question Answer Notes Patient is a nonsmoker Alcohol Screen Question Answer Notes Did you have a drink containing alcohol in the p ast year? No Points 0 Interpretation Negative Section Notes: Nonsmoker; no sig alcohol Nonsmoker; no sig alcohol Nonsmoker; no sig alcohol Problems Problem Type SNOMED Code ICD Code Onset Dates Problem Status W/U Status Risk Notes Problem 063481248 Encounter for screening for malignant neoplasm of colon (Z12.11) Active confirmed Problem Imaging of gastrointestinal tract abnormal (891624193) Abnormal CT scan, gastrointestinal tract (R93.3) Active confirmed Problem 880519927 Abnormal CT scan , colon (R93.3) Active confirmed Problem Abnormal CT scan , small bowel (R93.3) Active confirmed Problem 020597375 Abdominal pain, generalized (R10.84) Active confirmed Problem Diverticulosis of colon (559693830) Diverticulosis of colon (K57.30) Active confirmed Problem 656265540 Hx of adenomatou s polyp of colon (Z86.010) Active confirmed Problem 234084100 Abnormal compute d tomography of small intestine (R93.3) Active confirmed Plan Of Treatment Pending Test Test Name Order Date CHEM 7 PROFILE 04/29/2023 LIVER PROFILE 04/29/2023 CRP 04/29/2023 CBC w DIFF 04/29/2023 SED RATE (ESR) 04/29/2023 MRI ABD W&WO CONTRAST 10/29/2022 MRI PELVIS W&WO CONTRAST 10/29/2022 NUC MECKELS DIVERTICULUM 12/15/2022 TEST URINE (UCG) 04/29/2023 Future Test Test Name Order Date COLONOSCOPY 02/26/2022 COLONOSCOPY 04/29/2023 Insurance Providers Payer Name Payer Address Payer Phone Subscriber Number Group Number Insured Name Patient Relationship to Insured Coverage Start Date Coverage End Date [facility] [address] [address] [place], [place] [id number] JOSE Verdugo ELPIDIO Self - patient is the insured Medical (General) History Medical History History ICD Code Negative colonoscopy at [facility] approx 2014-told it was negative and told she had IBS Denies SC,DM,CVA,Lung disease,renal dise ase Anemia Kidney stones Asymptomatic gallstones-patient was advi sed at the 02/26/2022 OV Imaging studies with CT scan s and MRI have described some inflammatory changes in the right lower quadrant near the cecum, terminal ileum, and right adnexa--she has been seen by Dr. Vasquez and by her circuitry negative inspector, Dr. Siomara Rodriguez. She had a another episode of pain and abnormal imaging studies in August 2022 Normal colonoscopy in March of 2022, including biopsies from the terminal ileum and colon--there was no evidence of any Crohn's disease, ulcerative colitis, nor microscopic colitis Normal MR enterography in [facility]20[facility]--there was no evidence of any inflammatory bowel disease nor other abnormality Negative Meckel's scan in December PROCESS DEVELOPER surgery with Dr. Autumn shaikh in December of 2022 was negative for any sign of inflammatory bowel disease nor other significant intra-abdominal disease-see below CT scan of abdomen in April revealed recurrent inflammation in the right lower quadrant L. to represent Crohn's enteritis--also noted was cholelithiasis. There was no sign of appendicitis Colonoscopy in April of 2023 was completely normal, including the terminal ileum with biopsies. A small tubular adenoma was removed. After the April 2023 colonosc opy discussion with the patient revealed that she was using a fair amount of NSAIDs periodically which may have been the culprit in regard to causing the intermittent episodes of intestinal inflammation with associated abdominal pain and abnormal imaging Surgical History Surgery Date(Month/Year) 2005 Ectopic --left Fallopian tube r emoved BTL 2005 Uterine ablation Broken nose PROCESS DEVELOPER surgery December of 2022 . The only thing done was removal of adhesions around the right Fallopian tube. She still has both ovaries, the uterus, and the right Fallopian tube. Thre was no evidence of Crohn's disease nor any other GI tract abnormalities.
--- OUTSIDE RECORDS SUMMARY | 2025-07-25 13:23 | XMS_ITS | Clinical Summary ---
Author Organization [address] [facility] Address [address] [place] [address] Phone Care Team Providers Care Lead Performance Support Analyst Name Role Phone Mark Staples MD Primary Care Provider [phone] Allergies No known active allergies Medications silver sulfADIAZINE (Silvadene) 1 % cream Apply topically 1 (one) time each day. 50 g 4 09/22/20 25 Active norethindrone (KASHIF,MACIE,HEA THER,MICRONOR) 0.35 mg tablet Take 1 tablet (0.35 mg total) by mouth 1 (one) time each day. 28 tablet 12 5 Active Active Problems Problem Noted Date Diagnosed Date Low back pain 07/28/2024 Cervicalgia 07/28/2024 Other chest pain 07/28/2024 Other obesity due to excess calories 07/28/2024 Calculus of kidney with calculus of ureter 06/26 Overview (09/05/2024): 1998 and 05/2010. Right kidney with renal colic. Irritable bowel syndrome 06/26/2024 Abnormal ultrasound of endometrium 06/26/2024 Hydrosalpinx 06/26/2024 Diverticulitis 11/16/2021 Encounters Date Type Department Care Team Description 04/25/2025 2:00 PM EDT Office Visit Obst[facility]ne[facility] [address] [place] [address] Adriana Wilkins CNM Encounter for gynecological examination without abnormal finding (Primary Dx) from Last 3 Months Surgical History Surgery Date Site/Laterality Comments SECTION 05/2005 PROCEDURE: HISTORICAL DELIVERY LITHOTRIPSY 2014 PROCEDURE: HISTORICAL LITHOTRIPSY COLONOSCOPY PROCEDURE: MS COLONOSCOPY FLX DX W/COLLJ SPEC WHEN PFRMD; COMMENT: 2014, 2021, 2022. Age 39 negative, GI issues age 46 diverticulitis OTHER SURGICAL HISTORY 2003 PROCEDURE: MS COLPOSCOPY CERVIX UPPR/ADJCNT VAGINA W/CERVIX BX; COMMENT: NEDRA-1 SALPINGOOPHORECTOMY 2002 PROCEDURE: MS LAPAROSCOPY W/RMVL ADNEXAL STRUCTURES; COMMENT: Ectopic, right salpingectomy OTHER SURGICAL HISTORY 07/05/2018 PROCEDURE: MS HYSTEROSCOPY ENDOMETRIAL ABLATION OTHER SURGICAL HISTORY 06/2004 PROCEDURE: MS DESTRUCTION VAGINAL LESIONS SIMPLE; COMMENT: Laser ablation of vagina. Multifocal VAIN 1 CERVICAL BIOPSY W/ LOOP ELECTRODE EXCISION 06/2004 PROCEDURE: MS CONIZATION CERVIX W/WO D&C RPR ELTRD EXC; COMMENT: NEDRA-1 with free margins OTHER SURGICAL HISTORY 04/04/2021 PROCEDURE: HISTORY OTHER; COMMENT: Nasal fracture TUBAL LIGATION 2004 PROCEDURE: HISTORICAL TUBAL LIGATION OTHER SURGICAL HISTORY 12/31/2022 PROCEDURE: HISTORY OTHER; COMMENT: Hysteroscopy Dilation and Curettage under ultrasound guidance, Diagnostic laparoscopy, Right ovarian cystectomy, left ovarian cyst wall biopsy, lysis of adhesions, lysis of bowel adhesions. COLPOSCOPY SECTION, LOW TRANSVERSE 2004 Medical History Medical History Date Comments Calculus of kidney DX:Calculus o f kidney; COMMENT: 1998 and 05/2010. Right kidney with renal colic. 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 Treated with LEEP and laser. Diverticulitis 2021 DX:Diverticuliti s Irritable bowel syndrome DX:Irri table bowel syndrome Vitamin D deficiency DX:Vitamin D deficiency Family History Medical History Relation Name Comments Dementia Mother Agnieszka Walters Breast cancer Sister 1 Angeline Cancer Sister 1 Angeline Ovarian cancer Sister 2 Cancer Sister 3 Jennifer H Relation Name Status Comments Mother Agnieszka Walters Sister 1 Angeline Sister 2 Sister 3 Jennifer H Social History Tobacco Use Types Packs/Day Years Used Date Smoking Tobacco: Former Cigarettes Smokeless Tobacco: Never Alcohol Use Standard Drinks/Week Comments Not Currently 1 (1 standard drink = 0.6 oz pur e alcohol) occas Housing Instability Answer Date Recorde d Are you worried that in the next 2 months you may not have stable housing? No 04/18/2025 Food Access & Nutrition Answer Date Rec orded Do you have access to a vari ety of food including fruits and vegetables? Yes 04/18/2025 Health Literacy Answer Date Recorded How often do you need to hav e someone help you when you read instructions, pamphlets, or other written material from your doctor or pharmacy? Never 04/18/2025 Caregiver: How often do you need to have someone help you when you read instructions, pamphlets, or other written material from your doctor or pharmacy? Not on file 04/18/2025 Financial Risk Answer Date Recorded How hard is it for you to pa y for the very basics like food, housing, medical care, and air conditioning / heating? Patient declined 04/18/2025 Transportation Answer Date Recorded Has the lack of transportati on kept you from meetings, work, or from getting things needed for daily living? No Has the lack of transportati on kept you from medical appointments or from getting medications? No 04/18/2025 Social Isolation Answer Date Recorded How often do you feel lonely or isolated from th ose around you? Never 04/18/2025 Food Risk Answer Date Recorded Within the past 12 months we worried whether our food would run out before we got money to buy more. Patient declined 025 Within the past 12 months th e food we bought just didn't last and we didn't have money to get more. Never true 01/2025 Dependent Care Answer Date Recorded Do you need help finding or paying for care for your loved ones. For example, early childhood aide classroom or elderly care for an older adult? Patient declined 04/18/2025 Education Answer Date Recorded Do you think completing more education or training, like finishing a GED, going to college, or learning a trade, would be helpful for you? Yes 04/18/2025 Employment and Income Answer Date Recor ded During the last four weeks, have you been actively looking for work? No 04/18/2025 Living Situation Answer Date Recorded What is your living situation? 0 04/18/2025 Comments No Sex and Gender Information Value Date Recorded Sex Assigned at Not on file Legal Sex Female 1:12 PM EST Gender Identity Not on file Sexual Orientation Not on file Obstetrics History Para Term AB IAB SAB Ectopic Multiple Livin g Live Births 5 4 4 1 Date Outcome GA Total Labor Labor/2nd/3rd Weight Sex Type Anes PTL Leela A1 A5 Name Clin Ectopic Term Vag-Spo nt Term Vag-Spo nt Term CS-LTra nv Term Vag-Spo nt Last Filed Vital Signs Vital Sign Reading Time Taken Comments Blood Pressure 120/90 04/25/2025 2:00 PM EDT Pulse 92 04/25/2025 2:00 PM EDT Temperature 36.6 C (97.9 F) 02/28/2025 4:28 PM EDT Respiratory Rate 18 04/25/2025 2:00 PM EDT Oxygen Saturation - - Inhaled Oxygen Concentration - - Weight 97.3 kg (214 lb 6.4 oz) 04/25/2025 2:00 P M EDT Height 149.9 cm (4' 11 ) 04/25/2025 2:00 PM EDT Body Mass Index 43.3 04/25/2025 2:00 PM EDT Plan of Treatment Upcoming Encounters Date Type Department Care Team (Late st Contact Info) Description 08/03/2025 3:30 PM EDT Office Visit Orthopedic Surgery - [place] [id number] [phone] Hesham Finney, DPM [address] [phone] Health Maintenance Due Date Last Done Comments Breast Cancer Screening 1976 DTaP,Tdap,and Td Vaccines (1 - Tdap) 1995 Hepatitis B Vaccines (1 of 3 - 19+ 3-dose series) 1995 Cholesterol Screening (Lipid Panel) 10/14/2022 Colorectal Cancer Screening: Colonoscopy 10/14/2022 HIV Screening 10/14/2022 Hepatitis C Screening 10/14/2022 COVID-19 Vaccine (3 - 2024-2 6 season) 2025 09/20/2021, 08/16/2021 Influenza Vaccine (#1) 2025 Social Influencers of Health Screening 04/18/2026 04/18/2025 Cervical Cancer Screening: P ap Smear 02/23/2027 02/24/2024 Depression Screening Completed 04/18/2025 HIB Vaccines Aged Out No longer eligi [...] 5 Years) and At-Risk Patients (6 to 49 Years) Aged Out No longer eligible b [...] smear No Interpretation , Abstracted Historical Provider MD HEALTH MAINTENANCE Final Result from Last 3 Months or Most Recently Relevant to Health Maintenance Insurance [facility] [place] [id number] Care Teams Lead Performance Support Analyst Relationship Specialty Start Date End Date Mark Staples MD [address] [place] [address] Dr Honey [place] PCP - General 04/29/24
[2025-07-25 13:54] LABS: Appearance Urine Clear; Glucose Urine UA Negative (Negative); PH 6.5 (5.0-9.0); Specific Gravity - Urine <= 1.005 (1.005-1.025)
== END 2025-07-25 11:04 | disposition home or self-care (01) ==
LOC: HO.10HDLNP 11:03
PROVIDERS: Visit Provider Physician Assistant
DX: R30.0 Dysuria (principal)
CPT/HCPCS: 81003

== ENCOUNTER 2025-10-05 10:45 | Outpatient (AMB) | payer OTHER, SELFPAY ==
--- NOTE | 2025-10-05 10:44 | A.OFFPC_ITS ---
Vital Signs 10/05/25 10:45 Height 4 ft 11 in Weight 196 lb BMI 39.6 BP 130/74 Blood Pressure Location Lt brachial Position Sitting Temp 97.7 F Temp Source Temporal Artery Scan Pulse Oximetry (%) 99 Oxygen Delivery Method Room Air Intake Visit Reasons: PeriMenopause Licensed Clinician Required: No Accompanied by: Self / Same As Patient Allergies No Known Allergies Allergy (Verified 10/05/25 10:46) Medication List - Last Reconciled 10/05/25 by Gualberto Del Rosario MD cyclobenzaprine 10 mg PO BEDTIME PRN ferrous sulfate 325 mg PO DAILY norethindrone (contraceptive) mg PO DAILY sulfamethoxazole-trimethoprim 800-160 mg 1 tab PO BID tirzepatide (weight loss) (Zepbound) 10 mg (0.5 mL) subcut QWEEK 4 weeks Tobacco use date assessed: 10/05/25 Dental Screening Dental Screen Date: 10/05/25 Did you have a dental visit in the last 12 months?: Yes Did you have a dental problem in the last 6 months where you did not have access to dental care?: No HPI HPI Comments History of Present Illness Details 50-year-old female with no significant p ast medical history presenting with complaints of of flashes, sleep changes in mood changes. Also reports he had intolerance. She reports the symptoms have been going on for multiple months and is also noted. Multiple months but does report having some uterine scarring from prior procedures. She denies any weight loss, headaches, vision changes or urinary symptoms. She also reports having no further weight loss since her last clinic visit when she was started on 7.5 lb. Denies any constipation related to that. [facility] Medical History (Updated 10/05/25 @ 10:56 by Gualberto Del Rosario MD) Perimenopausal Lower abdominal pain Ectopic Kidney stone Surgical History History of salpingectomy History of salpingectomy History of surgery of uterus History of nasal surgery History of section History of extraction of renal calculus History of tubal ligation Family History Sister History of breast cancer History of ovarian cancer Mother No problems noted. Father No problems noted. Social History Housing: House Alcohol intake: never Patient Tobacco Use Status: Never used Tobacco e-Cigarette/Vaping Use: Never Used service: No Current occupational status: employed Cognitive needs: No Hearing needs: No Vision needs: No Questionnaire PHQ-9 Over the last 2 weeks, how often have you been bothered by any of the following problems? 1. Little interest or pleasure in doing things: not at all 2. Feeling down, depressed, or hopeless: not at all 3. Trouble falling or staying asleep, or sleeping too much: not at all 4. Feeling tired or having little energy: not at all 5. Poor appetite or overeating: not at all 6. Feeling bad about yourself - or that you are a failure or have let yourself or your family down: not at all 7. Trouble concentrating on things, such as reading the newspaper or watching television: not at all 8. Moving or speaking so slowly that other people could have noticed. Or the opposite - being so fidgety or restless that you have been moving around a lot more than usual: not at all 9. Thoughts that you would be better off or of hurting yourself in some way: not at all Total score: 0 Source: Developed by Drs. Theodore Lowry, Vianey Matute, Reji Sibley and colleagues, with an educational lynn from [employer]. Thrive Questionnaire Date Thrive assessed: 10/05/25 I am a: Patient Within the past 12 months, did the food you bought not last and you didn't have the money to get more?: Never true Within the past 12 months, did you worry whether your food would run out before you got money to buy more?: Never true Do you have trouble paying for medicines?: No Do you have trouble getting transportation to medical appointments?: No Do you have trouble paying your heating and electricity bill?: No Do you have trouble taking care of your child, family member or friend?: No Do you have trouble with day-to-day activities such as bathing, preparing meals, shopping, managing finances, etc.?: No Are you currently unemployed and looking for a job?: No Are you interested in more education?: No THRIVE Score: 0 AUDIT C Alcohol Use Questionnaire (AUDIT-C) 1. How often do you have a drink containing alcohol?: Never 3. How often do you have six or more drinks on one occasion?: Never Total Score: 0 VINNIE-7 AMB Questionnaire VINNIE-7 Date VINNIE - 7 assessed: 10/05/25 Feeling nervous, anxious, or on edge: 0 = Not at all Not being able to stop or control worryin = Not at all Worrying too much about different things: 0 = Not at all Trouble relaxin = Not at all Being so restless that it is hard to sit still: 0 = Not at all Becoming easily annoyed or irritable: 0 = Not at all Feeling afraid as if something awful might happen: 0 = Not at all Total VINNIE-7 score (0-4 normal; 5-9 mild; 10-14 moderate; 15-21 severe): 0 Source: Developed by Drs. Theodore Lowry, Vianey Matute, Reji Sibley and colleagues, with an educational lynn from [employer]. Review of Systems Const All systems reviewed & are unremarkable except as noted in HPI and below Physical exam (Primary Care) Tobacco/Smoking Status: Tobacco use Status Tobacco use date assessed 04/07/25 04/07/25 15:16 Patient Tobacco Use Status Never used Tobacco 04/07/25 15:16 e-Cigarette/Vaping Use Never Used 04/07/25 15:16 Thrive Assessment: Date of Thrive Assessment Date Thrive assessed 04/07/25 04/07/25 15:16 Narrative General: +Alert and oriented, Well nourished, No acute distress. Eye: Pupils are equal, round and reactive to light, Intact accommodation, Extraocular movements are intact, Normal conjunctiva, Vision unchanged. HENT: Normocephalic, Atraumatic, Tympanic membranes are clear, Normal hearing, Oral mucosa is moist, No pharyngeal erythema, Ear canals patent. Respiratory: Lungs CTA bilaterally, No wheeze, Respirations are non-labored. Cardiovascular: Regular rate, Regular rhythm, S1 auscultated, S2 auscultated, No murmur, Good pulses equal in all extremities, Normal peripheral perfusion, No edema. Gastrointestinal: Soft, Non-tender, Non-distended, Normal bowel sounds, No organomegaly. Musculoskeletal: Normal range of motion, Normal strength, No tenderness, No swel ling, No deformity, Normal gait. Integumentary: Warm, Dry, [place], Intact. Neurologic: Alert, Oriented, Normal sensory, Normal motor function, No focal defects, Cranial Nerves II-XII are grossly intact, Normal deep tendon reflexes. Psychiatric: Cooperative, Appropriate mood & affect, Normal judgment. Coding Level of Care Code Est Pt Level 1 (83216) Diagnoses Perimenopausal N95.1 Obesity (BMI 30.0-34.9) E66.811 Assessment & Plan Assessment & Plan (1) Perimenopausal: Comment: Given her presenting symptoms of which may or changes, mood changes and insomnia is likely that patient is going through perimenopause. At this time we will obtain labs of TSH, estradiol, FSH and LH to evaluate and determine if any medication changes are required. At this time advised behavioral changes and if they do not help will consider starting SSRIs or SNRIs based on lab work Code(s): N95.1 - Menopausal and female climacteric states Category: Medical Plan: - Order TSH, FSH, LH, HCG & Estradiol (2) Obesity (BMI 30.0-34.9): Comment: Despite being on 7.5mg of Mounjaro she has had minimal weight loss therefore will increase to 10 mg at this time and re-evaluate Code(s): E66.811 - Obesity, class 1 Category: Medical Plan: - Increase to Mounjaro 10 mg weekly Plan - Order TSH, FSH, LH, HCG & Estradiol - Increase to Mounjaro 10 mg weekly Orders: Orders TSH reflex Free T4 Today Z00.00 - Encounter for general adult medical examination without abnormal findings HCG Quantitative Today N95.1 - Menopausal and female climacteric states
[2025-10-05 10:45] VITALS: BP 130/74; TEMP 36.5; O2SAT 99; BMI 39.6
--- OUTSIDE RECORDS SUMMARY | 2025-10-05 16:13 | XMS_ITS | Patient Health Record ---
Author Organization [facility] Address [address] [place] [phone] Care Team Providers Care Billet Heater Operator Name Role Phone Bel (RETIRED) Mark MARTINS Primary Care Provide r Theodore English Unavailable [phone] Allergies No Known Allergies Reason For Referral No Information Immunizations Vaccine Route Administration Date Status Comme nts Influenza Unknown 02/26/2022 Refused Influenza Unknown 10/29/2022 Refused Social History Tobacco Use: Social History Observation Description Date Details (start date - stop date) Never Smoker NA - NA Social History Drugs/Alcohol: Social Info Question Answer Notes Alcohol Screen Did you have a drink containing alcohol in the past year? No Points 0 Interpretation Negative Tobacco Use: Social Info Question Answer Notes Tobacco Use/Smoking Patient is a nonsmoker Additional Details Category Social Info Options Details Miscellaneous: Marital status: Single Occupation: [employer] Children: 4 children Section Notes: Nonsmoker; no sig alcohol Nonsmoker; no sig alcohol Nonsmoker; no sig alcohol Problems Problem Type SNOMED Code ICD Code Onset Dates Problem Status W/U Status Risk Notes Problem Screening for malignant neoplasm of colon (195521376) Encounter for screening for malignant neoplasm of colon (Z12.11) Active confirmed Problem Imaging of gastrointestinal tract abnormal (499673790) Abnormal CT scan, gastrointestinal tract (R93.3) Active confirmed Problem Computed tomography result abnormal (963197714) Abnormal CT scan, colon (R93.3) Active confirmed Problem Abnormal CT scan , small bowel (R93.3) Active confirmed Problem Generalized abdominal pain (348163444) Abdominal pain, generalized (R10.84) Active confirmed Problem Diverticulosis of colon (884700907) Diverticulosis of colon (K57.30) Active confirmed Problem History of adenomatous polyp of colon (928748101) Hx of adenomatous polyp of colon (Z86.010) Active confirmed Problem Abnormal compute d tomography of small intestine [...] Insured Coverage Start Date Coverage End Date [facility] [address] [address] [place], [place] [id number] ELPIDIO SANDOVAL Self - patient is the insured Medical (General) History Medical History History ICD Code Negative colonoscopy at [facility] approx 2014-told it was negative and told she had IBS Denies DC,DM,CVA,Lung disease,renal dise ase Anemia Kidney stones Asymptomatic gallstones-patient was advi sed at the 02/26/2022 OV Imaging studies with CT scan s and MRI have described some inflammatory changes in the right lower quadrant near the cecum, terminal ileum, and right adnexa--she has been seen by Dr. Vasquez and by her magnetic prospecting supervisor, Dr. Siomara Rodriguez. She had a another episode of pain and abnormal imaging studies in August 2022 Normal colonoscopy in March of 2022, including biopsies from the terminal ileum and colon--there was no evidence of any Crohn's disease, ulcerative colitis, nor microscopic colitis Normal MR enterography in [facility]2022--there was no evidence of any inflammatory bowel disease nor other abnormality Negative Meckel's scan in December SECURITIES ATTORNEY surgery with Dr. Autumn shaikh in December [...] emoved BTL 2005 Uterine ablation Broken nose SECURITIES ATTORNEY surgery December of 2022 . The only thing done was removal of adhesions around the right Fallopian tube. She still has both ovaries, the uterus, and the right Fallopian tube. Thre was no evidence of Crohn's disease nor any other GI tract abnormalities.
--- OUTSIDE RECORDS SUMMARY | 2025-10-05 16:13 | XMS_ITS | Clinical Summary ---
Author Organization [facility] Address [address] [place] [address] Phone Care Team Providers Care Conference Center Coordinator Name Role Phone Mark Staples MD Primary Care Provider [phone] Allergies No known active allergies Medications norethindrone (KASHIF,MACIE,HEA THER,MICRONOR) 0.35 mg tablet Take 1 tablet (0.35 mg total) by mouth 1 (one) time each day. 28 tablet 12 5 Active silver sulfADIAZINE (Silvadene) 1 % cream Apply topically 1 (one) time each day. 50 g 4 09/22/20 25 Active Problems Problem Noted Date Diagnosed Date Low back pain 07/28/2024 Cervicalgia 07/28/2024 Other chest pain 07/28/2024 Other obesity due to excess calories 07/28/2024 Calculus of kidney with calculus of ureter 06/26 Overview (09/05/2024): 1998 and 05/2010. Right kidney with renal colic. Irritable bowel syndrome 06/26/2024 Abnormal ultrasound of endometrium 06/26/2024 Hydrosalpinx 06/26/2024 Diverticulitis 11/16/2021 Encounters Date Type Department Care Team Description 08/03/2025 3:30 PM EDT Office Visit Orthopedic Surgery [facility] [address] [facility] [address] [place] [address] Hesham Finney, DPM Dermatophytosis of nail (Primary Dx); Ingrowing nail; Tinea pedis of both feet from Last 3 Months Surgical History Surgery Date Site/Laterality Comments SECTION 05/2005 PROCEDURE: HISTORICAL DELIVERY LITHOTRIPSY 2014 PROCEDURE: HISTORICAL LITHOTRIPSY COLONOSCOPY PROCEDURE: [facility] COLONOSCOPY FLX DX W/COLLJ SPEC WHEN PFRMD; COMMENT: 2014, 2021, 2022. Age 39 negative, GI issues age 46 diverticulitis OTHER SURGICAL HISTORY 2003 PROCEDURE: [facility] COLPOSCOPY CERVIX UPPR/ADJCNT VAGINA W/CERVIX BX; COMMENT: NEDRA-1 SALPINGOOPHORECTOMY 2002 PROCEDURE: VA LAPAROSCOPY W/RMVL ADNEXAL STRUCTURES; COMMENT: Ectopic, right salpingectomy OTHER SURGICAL HISTORY 07/05/2018 PROCEDURE: VA HYSTEROSCOPY ENDOMETRIAL ABLATION OTHER SURGICAL HISTORY 06/2004 PROCEDURE: VA DESTRUCTION VAGINAL LESIONS SIMPLE; COMMENT: Laser ablation of vagina. Multifocal VAIN 1 CERVICAL BIOPSY W/ LOOP ELECTRODE EXCISION 06/2004 PROCEDURE: VA CONIZATION CERVIX W/WO D&C RPR ELTRD EXC; [...] care for your loved ones. For example, professor of early childhood education or elderly care for an older adult? [...] Date Recorded What is your living situation? Unrecognized valu e 04/18/2025 Comments No Sex and Gender Information [...] 04/25/2025 2:00 PM EDT Plan of Treatment Health Maintenance Due Date Last Done Comments Breast Cancer Screening 1976 Colorectal Cancer Screening: Colonoscopy 1976 DTaP,Tdap,and Td Vaccines (1 - Tdap) 1995 Hepatitis B Vaccines (1 of 3 - 19+ 3-dose series) 1995 Cholesterol Screening (Lipid Panel) 10/14/2022 HIV Screening 10/14/2022 Hepatitis C Screening 10/14/2022 COVID-19 Vaccine (3 - 2024-2 6 season) 2025 09/20/2021, 08/16/2021 Influenza Vaccine (#1) 2025 Social Influencers of Health Screening 04/18/2026 04/18/2025 Cervical Cancer Screening: P ap Smear 02/23/2027 02/24/2024 RSV Immunization Adult Patients (1 - 1-dose 75+ series) 2051 Depression Screening Completed 04/18/2025 HIB Vaccines Aged [...] Most Recently Relevant to Health Maintenance Insurance [facility] [employer] Care Teams Conference Center Coordinator Relationship Specialty Start Date End Date Mark Staples MD [address] [place] [address] Dr Honey MA PCP - General 04/29/24
== END 2025-10-05 10:57 | disposition home or self-care (01) ==
LOC: HO.HMCHD 10:45
PROVIDERS: PCP Internal Medicine; Visit Provider Student in an Organized Health Care Education/Training Program
DX: N95.1 Menopausal and female climacteric states (principal); E66.811 Obesity, class 1

== ENCOUNTER → 2025-10-05 10:45 | Outpatient (BNVA) | payer OTHER, SELFPAY | PROVIDERS: PCP Internal Medicine; Visit Provider Student in an Organized Health Care Education/Training Program | DX: N95.1 Menopausal and female climacteric states (principal); E66.811 Obesity, class 1; Z13.31 Encounter for screening for depression; Z13.39 Encounter for screening examination for other mental health and behavioral disorders | CPT/HCPCS: 96127; 99211 ==

== ENCOUNTER 2025-10-05 11:24 | Outpatient (REF) | payer OTHER, SELFPAY ==
[2025-10-06 05:39] LABS: Follicle Stimulating Hormone 110.8 mIU/mL
[2025-10-12 05:29] LABS: Estradiol Ultra Sensitive 6 pg/mL
== END 2025-10-05 11:25 | disposition home or self-care (01) ==
LOC: HO.10HDL 11:24
PROVIDERS: Visit Provider Student in an Organized Health Care Education/Training Program
DX: Z00.00 Encounter for general adult medical examination without abnormal findings (principal); N95.1 Menopausal and female climacteric states
CPT/HCPCS: 36415; 82670; 83001; 83002; 84443; 84702